=== PATIENT | male | born 1940 | race Caucasian/White ===

== ENCOUNTER → 2017-03-16 | Outpatient (CLI) | payer OTHER ==
[~2017-03-16] MED LIST: AMLO2.5T PO; ASPI81CH43; DOCU-94 PO; GABA300C8 PO; GLIP-110; HYDR-2035; LEVO500T3 PO; LISI10TA6; METFORMIN PO; SIMV-8; TRAM50TA2
== END | disposition home or self-care (01) ==
LOC: LAB 10:00
PROVIDERS: ATTEND Physician Assistant
DX: L82.1 Other seborrheic keratosis (principal)

== ENCOUNTER → 2017-07-31 | Outpatient (CLI) | payer OTHER ==
[~2017-07-31] MED LIST changes: +GABA-497 PO; -GABA300C8 PO; +LEVO500T21 PO; -LEVO500T3 PO
[2017-07-31 09:46] LABS: Urine Bilirubin Negative (Negative); Urine Blood 1+ /uL (Negative); Urine Color Yellow (Yellow); Urine Glucose Normal (Normal); Urine Ketone Negative (Negative); Urine Nitrite Negative (Negative); Urine RBC 1 /hpf (0 - 3); Urine Urobilinogen Normal (Negative)
[2017-07-31 09:53] LABS: Albumin 3.3 g/dL (3.4-5.0); BUN/Creatinine Ratio 18.6; Basophils # (auto) 0.1 uL; Basophils % (auto) 0.5 % (0.0-2.0); Bilirubin, Total 0.4 mg/dL (0.2-1.0); Calcium 8.7 mg/dL (8.5-10.1); Eosinophils # (auto) 0.2 uL; Eosinophils % (auto) 2.3 % (0.0-7.0); Hematocrit 42.3 % (41.0-53.0); Hemoglobin 14.2 g/dL (13.5-17.5); Lymphocytes # (auto) 1.5 uL; Mean Corpuscular Hemoglobin 31.5 pg (28.0-32.0); Mean Corpuscular Hgb Conc. 33.5 g/dL (32.0-36.0); Mean Platelet Volume 7.3 fL (6.9-10.8); Monocytes # (auto) 0.7 uL; Monocytes % (auto) 7.1 % (0.0-12.0); Neutrophils # (auto) 7.5 uL; Neutrophils % (auto) 75.1 % (37.0-80.0); Platelet Count (auto) 167 10^3/uL (140-450); Potassium 4.4 mmol/L (3.5-5.1); Red Cell Distribution Width 14.5 % (11.8-14.3); Total Protein 7.1 g/dL (6.4-8.2)
== END | disposition home or self-care (01) ==
LOC: LAB 08:31
PROVIDERS: ATTEND Family Medicine
DX: I10 Essential (primary) hypertension (principal); E11.9 Type 2 diabetes mellitus without complications
CPT/HCPCS: 36415; 80053; 80061; 81001; 82607; 83036; 84443; 85025

== ENCOUNTER 2018-01-04 10:31 | Inpatient (IN) | payer OTHER ==
[~2018-01-04] VITALS: Ht 172.7 cm; Wt 92.0 kg
[~2018-01-04 10:31] MED LIST changes: -GABA-497 PO; +GABA300C10 PO
[2018-01-04] MEDS ORDERED: SODIUM CHLORIDE 0.9% 500 ML IV ONE (10:49)
[2018-01-04 11:18] LABS: Basophils # (auto) 0.1 uL; Basophils % (auto) 0.4 % (0.0-2.0); Eosinophils # (auto) 0 uL; Eosinophils % (auto) 0.2 % (0.0-7.0); Hematocrit 42.2 % (41.0-53.0); Hemoglobin 13.8 g/dL (13.5-17.5); Lymphocytes # (auto) 1.7 uL; Lymphocytes % (auto) 10.6 % (10.0-50.0); Mean Corpuscular Hemoglobin 30.7 pg (28.0-32.0); Mean Corpuscular Hgb Conc. 32.6 g/dL (32.0-36.0); Mean Corpuscular Volume 94.2 fL (80.0-100.0); Monocytes # (auto) 0.8 uL; Monocytes % (auto) 5.2 % (0.0-12.0); Neutrophils # (auto) 13.6 uL; Neutrophils % (auto) 83.6 % (37.0-80.0); Platelet Count (auto) 158 10^3/uL (140-450); Red Blood Cells 4.48 10^6/uL (4.5-5.90); Red Cell Distribution Width 13.7 % (11.8-14.3); White Blood Cell 16.3 10^3/uL (4.4-10.8)
[2018-01-04 11:35] LABS: INR 0.97 (0.9-1.15); Partial Thromboplastin Time 29.3 sec (22.64-33.71); Prothrombin Time 10.6 sec (9.37-12.3)
[2018-01-04 11:36] LABS: Alanine Aminotransferase 12 U/L (16-61); Albumin 2.9 g/dL (3.4-5.0); Alkaline Phosphatase 86 U/L (45-117); Anion Gap 11 (5-15); Aspartate Aminotransferase 16 U/L (15-37); BUN/Creatinine Ratio 14.8; Bilirubin, Total 0.5 mg/dL (0.2-1.0); Blood Urea Nitrogen 18 mg/dL (7-18); Calcium 8.2 mg/dL (8.5-10.1); Carbon Dioxide 22 mmol/L (21-32); Chloride 102 mmol/L (98-107); GFR African American 74 mL/min; GFR Non-African American 61 mL/min; Glucose 191 mg/dL (74-106); Magnesium 2.5 mg/dL (1.6-2.6); Potassium 4.4 mmol/L (3.5-5.1); Sodium 135 mmol/L (136-145); Total Protein 6.8 g/dL (6.4-8.2)
[2018-01-04] MEDS ORDERED: IOHEXOL 350 MG/ML 100ML IJ ONE (12:16)
[2018-01-04] MEDS ORDERED: MORPHINE SULFATE 4 MG/ML SYR/VIAL IV PRN (14:00)
[2018-01-04] MEDS ORDERED: KETOROLAC TROMETH 30 MG/ML 1ML VIAL IV ONE (14:00)
[2018-01-04] MEDS ORDERED: cefTRIAXone 1GM/10ml IVPUSH 10 ML IV ONE (14:00)
[2018-01-04] MEDS ORDERED: DEXTROSE (50%) 50ML SYRG IV PRN (14:00)
[2018-01-04] MEDS ORDERED: HYDROcodone-ACET 7.5/325MG TAB PO PRN (14:00)
[2018-01-04] MEDS ORDERED: AZITHROMYCIN 500MG/ 250ML 250 ML IV ONE (14:00)
[2018-01-04] MEDS ORDERED: ONDANSETRON HCL 4 MG/2 ML VIAL IV PRN (14:00)
[2018-01-04] MEDS ORDERED: DOCUSATE SOD 100 MG CAP PO PRN (14:15)
[2018-01-04] MEDS ORDERED: ENOXAPARIN SOD 40 MG/0.4 ML SYRINGE SC SCH (14:30)
[2018-01-04 14:44] LABS: Cholesterol 136 mg/dL (< 200); HDL Cholesterol 45 mg/dL (40-59); LDL Cholesterol 85 mg/dL (< 100); Triglycerides 106 mg/dL (< 150)
[2018-01-04] MEDS: SODIUM CHLORIDE 0.9% 1,000 ML IV SCH (15:05)
[2018-01-04] MEDS: InsuLIN REG 1unit/0.01ml Soln (100units/ml) SC SCH ×2 (17:00→22:00)
[2018-01-04] MEDS: ACCU-CHEK COMFORT CURVE STRIP VI SCH ×2 (17:20→22:00)
[2018-01-04] MEDS: ALBUTEROL SULF 2.5 MG/0.5ML(0.5%) NEB SOLN NEB SCH (18:40)
[2018-01-04] MEDS: IPRATROPIUM BROM 0.5 MG/2.5ML INH SOL NEB SCH (18:41)
[2018-01-04 20:30] VITALS: BP 134/74
[2018-01-04 22:00] VITALS: BP 134/74
[2018-01-04] MEDS: ATORVASTATIN 20 MG TAB PO SCH (22:15)
[2018-01-04] MEDS: GABAPENTIN 300 MG CAP PO SCH (22:15)
[2018-01-05 04:02] VITALS: BP 134/74
[2018-01-05 04:57] VITALS: BP 150/79
[2018-01-05] MEDS: ALBUTEROL SULF 2.5 MG/0.5ML(0.5%) NEB SOLN NEB SCH ×4 (06:17→19:14)
[2018-01-05] MEDS: IPRATROPIUM BROM 0.5 MG/2.5ML INH SOL NEB SCH ×4 (06:17→19:15)
[2018-01-05] MEDS: InsuLIN REG 1unit/0.01ml Soln (100units/ml) SC SCH ×4 (07:00→21:54)
[2018-01-05] MEDS: ACCU-CHEK COMFORT CURVE STRIP VI SCH ×4 (07:18→21:54)
[2018-01-05] MEDS: SODIUM CHLORIDE 0.9% 1,000 ML IV SCH (07:21)
[2018-01-05 08:02] LABS: Potassium 3.9 mmol/L (3.5-5.1)
[2018-01-05 08:07] LABS: BUN/Creatinine Ratio 22.7; Calcium 8.3 mg/dL (8.5-10.1)
[2018-01-05 08:09] LABS: Basophils # (auto) 0 uL; Basophils % (auto) 0.4 % (0.0-2.0); Eosinophils # (auto) 0.1 uL; Eosinophils % (auto) 1.4 % (0.0-7.0); Hematocrit 39.4 % (41.0-53.0); Lymphocytes # (auto) 1.2 uL; Mean Corpuscular Hemoglobin 30.9 pg (28.0-32.0); Mean Corpuscular Hgb Conc. 33.1 g/dL (32.0-36.0); Mean Corpuscular Volume 93.3 fL (80.0-100.0); Monocytes # (auto) 0.7 uL; Monocytes % (auto) 8.4 % (0.0-12.0); Neutrophils % (auto) 74.8 % (37.0-80.0); Platelet Count (auto) 151 10^3/uL (140-450); Red Blood Cells 4.22 10^6/uL (4.5-5.90); Red Cell Distribution Width 13.8 % (11.8-14.3); White Blood Cell 8.1 10^3/uL (4.4-10.8)
[2018-01-05 09:00] VITALS: BP 135/73
[2018-01-05 09:37] LABS: Urine Bacteria FEW /hpf (None Seen); Urine Blood TRACE /uL (Negative); Urine Specific Gravity 1.009 (1.001-1.035); Urine WBC 11 /hpf (0 - 3)
[2018-01-05] MEDS: cefTRIAXone 1GM/10ml IVPUSH 10 ML IV SCH (09:38)
[2018-01-05] MEDS: ASPirin 81 mg TAB PO SCH (09:38)
[2018-01-05] MEDS: AZITHROMYCIN 500MG/ 250ML 250 ML IV SCH (09:38)
[2018-01-05] MEDS: GABAPENTIN 300 MG CAP PO SCH ×2 (09:39→21:53)
[2018-01-05 13:00] VITALS: BP 156/87
[2018-01-05 17:00] VITALS: BP 156/82
[2018-01-05] MEDS: ATORVASTATIN 20 MG TAB PO SCH (21:53)
[2018-01-05 22:00] VITALS: BP 154/84
[2018-01-05] MEDS ORDERED: CYAN1TAB14 PO (23:17)
[2018-01-05] MEDS ORDERED: HYDR-4683 PO (23:17)
[2018-01-05] MEDS ORDERED: LISI-275 PO (23:17)
[2018-01-05] MEDS ORDERED: ALBU1AER4 IN (23:17)
[2018-01-05] MEDS ORDERED: GLIP-115 PO (23:17)
[2018-01-05] MEDS ORDERED: FLUT100I IN (23:17)
[2018-01-05] MEDS ORDERED: ALPR0.5T7 PO (23:17)
[2018-01-05] MEDS ORDERED: AMLO5TAB2 PO (23:17)
[2018-01-05] MEDS ORDERED: CHOL100055 PO (23:17)
[2018-01-06] MEDS ORDERED: LISINOPRIL 5 MG TAB PO ONE (00:15)
[2018-01-06] MEDS ORDERED: amLODIPine BESYLATE 5 MG TAB PO ONE (00:15)
[2018-01-06 05:00] VITALS: BP 131/81
[2018-01-06] MEDS: ACCU-CHEK COMFORT CURVE STRIP VI SCH ×2 (06:29→11:47)
[2018-01-06] MEDS: InsuLIN REG 1unit/0.01ml Soln (100units/ml) SC SCH ×2 (06:29→11:47)
[2018-01-06] MEDS: IPRATROPIUM BROM 0.5 MG/2.5ML INH SOL NEB SCH ×2 (06:59→13:15)
[2018-01-06] MEDS: ALBUTEROL SULF 2.5 MG/0.5ML(0.5%) NEB SOLN NEB SCH ×2 (06:59→13:15)
[2018-01-06 09:32] VITALS: BP 115/83
[2018-01-06] MEDS ORDERED: LISINOPRIL 5 MG TAB PO SCH (10:00)
[2018-01-06] MEDS ORDERED: amLODIPine BESYLATE 5 MG TAB PO SCH (10:00)
[2018-01-06] MEDS: AZITHROMYCIN 500MG/ 250ML 250 ML IV SCH (10:13)
[2018-01-06] MEDS: GABAPENTIN 300 MG CAP PO SCH (10:13)
[2018-01-06] MEDS: ASPirin 81 mg TAB PO SCH (10:13)
[2018-01-06] MEDS: cefTRIAXone 1GM/10ml IVPUSH 10 ML IV SCH (10:13)
[2018-01-06 12:30] VITALS: BP 135/86
[2018-01-06 13:29] VITALS: BP 115/83
== END 2018-01-06 15:20 | disposition home health service (06) | DRG 871 ==
LOC: EDBD 10:31 → ER 10:31 → EDUNIT# 10:31 → OVERFLOW 10:32 → EAST 20:30
PROVIDERS: ADMIT Internal Medicine; ATTEND Internal Medicine
DX: A41.9 Sepsis, unspecified organism (principal); J18.9 Pneumonia, unspecified organism; J96.00 Acute respiratory failure, unspecified whether with hypoxia or hypercapnia; E44.0 Moderate protein-calorie malnutrition; E11.40 Type 2 diabetes mellitus with diabetic neuropathy, unspecified; E11.65 Type 2 diabetes mellitus with hyperglycemia; I11.9 Hypertensive heart disease without heart failure; R65.20 Severe sepsis without septic shock; E78.5 Hyperlipidemia, unspecified; I25.10 Atherosclerotic heart disease of native coronary artery without angina pectoris; Z96.651 Presence of right artificial knee joint; R55 Syncope and collapse; M54.5 Low back pain; J44.9 Chronic obstructive pulmonary disease, unspecified; Z96.643 Presence of artificial hip joint, bilateral; K59.00 Constipation, unspecified; M19.90 Unspecified osteoarthritis, unspecified site; M81.0 Age-related osteoporosis without current pathological fracture; Z79.891 Long term (current) use of opiate analgesic; Z79.899 Other long term (current) drug therapy; Z82.49 Family history of ischemic heart disease and other diseases of the circulatory system; Z82.5 Family history of asthma and other chronic lower respiratory diseases; Z86.73 Personal history of transient ischemic attack (TIA), and cerebral infarction without residual deficits; Z86.711 Personal history of pulmonary embolism; Z68.30 Body mass index [BMI] 30.0-30.9, adult; Z88.1 Allergy status to other antibiotic agents
CPT/HCPCS: 36415; 36600; 71045; 71046; 71275; 80048; 80053; 80061; 81001; 82805; 82962; 83036; 83605; 83735; 83880; 84484; 85025; 85379; 85610; 85730; 87040; 93005; 94640; 94761; 96361; 96365; 96372; 96375; 99291; J1815; J1885

== ENCOUNTER 2018-06-02 14:37 | Inpatient (IN) | payer OTHER ==
[~2018-06-02] VITALS: Ht 172.7 cm; Wt 89.5 kg
[~2018-06-02 14:37] MED LIST changes: +ALBU1AER4 IN; +ALPR0.5T7 PO; -AMLO2.5T PO; +AMLO5TAB2 PO; +CHOL100055 PO; +CYAN1TAB14 PO; +FLUT100I IN; -GLIP-110; +GLIP-115 PO; -HYDR-2035; +HYDR-4683 PO; +LISI-275 PO; -LISI10TA6; -TRAM50TA2
[2018-06-02 15:06] LABS: Basophils # (auto) 0 uL; Basophils % (auto) 0.5 % (0.0-2.0); Eosinophils # (auto) 0.1 uL; Eosinophils % (auto) 0.9 % (0.0-7.0); Hematocrit 39.1 % (41.0-53.0); Hemoglobin 13.3 g/dL (13.5-17.5); Lymphocytes # (auto) 1.6 uL; Lymphocytes % (auto) 19.2 % (10.0-50.0); Mean Corpuscular Hemoglobin 32.3 pg (28.0-32.0); Monocytes # (auto) 0.6 uL; Monocytes % (auto) 7.3 % (0.0-12.0); Neutrophils # (auto) 6.2 uL; Neutrophils % (auto) 72.1 % (37.0-80.0); Platelet Count (auto) 151 10^3/uL (140-450); Red Blood Cells 4.11 10^6/uL (4.5-5.90); Red Cell Distribution Width 14.2 % (11.8-14.3); White Blood Cell 8.5 10^3/uL (4.4-10.8)
[2018-06-02 15:32] LABS: Alanine Aminotransferase 17 U/L (16-61); Albumin 3.1 g/dL (3.4-5.0); Alkaline Phosphatase 81 U/L (45-117); Anion Gap 5 (5-15); Aspartate Aminotransferase 17 U/L (15-37); BUN/Creatinine Ratio 12.9; Bilirubin, Total 0.4 mg/dL (0.2-1.0); Blood Urea Nitrogen 12 mg/dL (7-18); Calcium 8.1 mg/dL (8.5-10.1); Carbon Dioxide 24 mmol/L (21-32); Chloride 104 mmol/L (98-107); GFR African American 101 mL/min; GFR Non-African American 83 mL/min; Glucose 72 mg/dL (74-106); Magnesium 2.3 mg/dL (1.6-2.6); Potassium 3.7 mmol/L (3.5-5.1); Sodium 133 mmol/L (136-145); Total Protein 6.8 g/dL (6.4-8.2)
[2018-06-02] MEDS ORDERED: SODIUM CHLORIDE 0.9% 1,000 ML IVB ONE (16:18)
[2018-06-02] MEDS ORDERED: cefTRIAXone 1GM/10ml IVPUSH 10 ML IV ONE (16:30)
[2018-06-02] MEDS ORDERED: IPRATROPIUM BROM 0.5 MG/2.5ML INH SOL HHN ONE (16:45)
[2018-06-02] MEDS ORDERED: methylPREDNISolone SOD SUCC 125 MG/2 ML VL IV ONE (16:45)
[2018-06-02] MEDS ORDERED: ALBUTEROL SULF 2.5 MG/0.5ML(0.5%) NEB SOLN HHN ONE (16:45)
[2018-06-02 17:03] LABS: Lactic Acid w/Reflex 2.1 mmol/L (0.4-2.0)
[2018-06-02 17:47] LABS: INR 0.93 (0.9-1.15); Partial Thromboplastin Time 29.4 sec (23.78-33.04)
[2018-06-02] MEDS ORDERED: SODIUM CHLORIDE 0.9% 1,000 ML IV SCH (18:41)
[2018-06-02] MEDS ORDERED: PROMETHAZINE HCL 25 MG/ML 1ML IV PRN (18:45)
[2018-06-02] MEDS ORDERED: ALBUTEROL SULF 2.5 MG/0.5ML(0.5%) NEB SOLN NEB PRN (18:45)
[2018-06-02] MEDS ORDERED: ACETAMINOPHEN 500 MG TAB PO PRN (18:45)
[2018-06-02] MEDS ORDERED: LORazepam 0.5 MG TAB PO PRN (18:45)
[2018-06-02] MEDS ORDERED: LACTULOSE 20Gm/30ML SOLN PO PRN (18:45)
[2018-06-02] MEDS ORDERED: DEXTROSE (50%) 50ML SYRG IV PRN (18:45)
[2018-06-02] MEDS ORDERED: TEMAZEPAM 15 MG CAP PO PRN (18:45)
[2018-06-02] MEDS ORDERED: MORPHINE SULF INJ 2 MG/ML SYRINGE 1ML IV PRN (18:45)
[2018-06-02] MEDS ORDERED: MORPHINE SULFATE 4 MG/ML SYR/VIAL IV PRN (18:45)
[2018-06-02] MEDS: ENOXAPARIN SOD 40 MG/0.4 ML SYRINGE SC SCH (18:59)
[2018-06-02] MEDS: DOXYCYCLINE 100MG/250ML 250 ML IV SCH (18:59)
[2018-06-02 19:00] LABS: Urine Bacteria FEW /hpf (None Seen); Urine Blood Negative /uL (Negative); Urine Specific Gravity 1.003 (1.001-1.035); Urine WBC 9 /hpf (0 - 3)
[2018-06-02] MEDS ORDERED: amLODIPine BESYLATE 5 MG TAB PO ONE (19:00)
[2018-06-02] MEDS ORDERED: PANTOPRAZOLE 40 MG TAB PO ONE (19:00)
[2018-06-02] MEDS ORDERED: ASPirin 81 mg TAB PO ONE (19:00)
[2018-06-02] MEDS ORDERED: POTASSIUM CHL 20 Meq TABLET PO SCH (19:05)
[2018-06-02] MEDS ORDERED: FUROSEMIDE 40 MG/4 ML VIAL IV SCH (19:05)
[2018-06-02] MEDS: ALPRAZolam 0.5 MG TAB PO SCH (19:15)
[2018-06-02] MEDS: DOCUSATE SOD 100 MG CAP PO SCH (19:33)
[2018-06-02] MEDS: glipiZIDE 5 MG TAB PO SCH (19:36)
[2018-06-02 20:30] VITALS: BP 130/76
[2018-06-02 21:11] VITALS: BP 130/76
[2018-06-02] MEDS: ACCU-CHEK COMFORT CURVE STRIP VI SCH (22:00)
[2018-06-03] MEDS ORDERED: methylPREDNISolone SOD SUCC 40 MG/ML VL IV SCH
[2018-06-03] MEDS: ATORVASTATIN 20 MG TAB PO SCH ×2 (00:26→22:31)
[2018-06-03] MEDS: GABAPENTIN 300 MG CAP PO SCH ×3 (00:26→22:31)
[2018-06-03] MEDS: CARVEDILOL 3.125 MG TAB PO SCH ×3 (00:29→22:31)
[2018-06-03] MEDS: HYDROcodone-ACET 5/325MG TAB PO PRN ×3 (00:41→22:32)
[2018-06-03] MEDS: InsuLIN REG 1unit/0.01ml Soln (100units/ml) SC SCH ×5 (00:43→22:00)
[2018-06-03 01:32] VITALS: BP 134/76
[2018-06-03] MEDS: BUDESONIDE (INHALATION) 0.5 MG/2 ML NEB NEB SCH ×3 (01:50→18:19)
[2018-06-03] MEDS: IPRATROPIUM BROM 0.5 MG/2.5ML INH SOL NEB SCH ×4 (01:50→18:19)
[2018-06-03] MEDS: ALBUTEROL SULF 2.5 MG/0.5ML(0.5%) NEB SOLN NEB SCH ×4 (01:50→18:20)
[2018-06-03 05:11] VITALS: BP 108/68
[2018-06-03] MEDS: ACCU-CHEK COMFORT CURVE STRIP VI SCH ×4 (07:00→22:00)
[2018-06-03 07:21] LABS: Basophils # (auto) 0 uL; Basophils % (auto) 0.1 % (0.0-2.0); Eosinophils # (auto) 0 uL; Hematocrit 40.7 % (41.0-53.0); Hemoglobin 13.5 g/dL (13.5-17.5); Lymphocytes # (auto) 0.8 uL; Lymphocytes % (auto) 16.9 % (10.0-50.0); Mean Corpuscular Hemoglobin 31.5 pg (28.0-32.0); Mean Corpuscular Hgb Conc. 33.3 g/dL (32.0-36.0); Mean Corpuscular Volume 94.7 fL (80.0-100.0); Monocytes # (auto) 0.2 uL; Monocytes % (auto) 4.4 % (0.0-12.0); Neutrophils # (auto) 3.8 uL; Neutrophils % (auto) 78.6 % (37.0-80.0); Platelet Count (auto) 152 10^3/uL (140-450); Red Cell Distribution Width 14.6 % (11.8-14.3); White Blood Cell 4.8 10^3/uL (4.4-10.8)
[2018-06-03 08:45] VITALS: BP 146/80
[2018-06-03] MEDS: glipiZIDE 5 MG TAB PO SCH ×2 (09:00→17:41)
[2018-06-03] MEDS: ASPirin 81 mg TAB PO SCH (09:37)
[2018-06-03] MEDS: DOXYCYCLINE 100MG/250ML 250 ML IV SCH ×2 (09:37→22:30)
[2018-06-03] MEDS: DOCUSATE SOD 100 MG CAP PO SCH (09:38)
[2018-06-03] MEDS: amLODIPine BESYLATE 5 MG TAB PO SCH (09:40)
[2018-06-03] MEDS: PANTOPRAZOLE 40 MG TAB PO SCH (09:40)
[2018-06-03] MEDS: ALPRAZolam 0.5 MG TAB PO SCH (09:41)
[2018-06-03] MEDS: CHOLECALCIFEROL (VITD3) 1,000 UNIT TAB PO SCH (09:41)
[2018-06-03] MEDS: LISINOPRIL 5 MG TAB PO SCH (09:42)
[2018-06-03] MEDS: ENOXAPARIN SOD 40 MG/0.4 ML SYRINGE SC SCH (09:43)
[2018-06-03 12:00] VITALS: BP 138/85
[2018-06-03] MEDS ORDERED: ALBUTEROL SULF 2.5 MG/0.5ML(0.5%) NEB SOLN NEB PRN (12:30)
[2018-06-03] MEDS ORDERED: IPRATROPIUM BROM 0.5 MG/2.5ML INH SOL NEB PRN (12:30)
[2018-06-03 16:33] VITALS: BP 144/78
[2018-06-03 21:24] VITALS: BP 147/81
[2018-06-04] MEDS: ALBUTEROL SULF 2.5 MG/0.5ML(0.5%) NEB SOLN NEB SCH ×3 (00:28→12:00)
[2018-06-04] MEDS: IPRATROPIUM BROM 0.5 MG/2.5ML INH SOL NEB SCH ×3 (00:29→12:00)
[2018-06-04 05:02] VITALS: BP 138/76
[2018-06-04] MEDS: BUDESONIDE (INHALATION) 0.5 MG/2 ML NEB NEB SCH (06:27)
[2018-06-04 06:38] LABS: Basophils # (auto) 0 uL; Basophils % (auto) 0.4 % (0.0-2.0); Eosinophils # (auto) 0.1 uL; Eosinophils % (auto) 1.1 % (0.0-7.0); Hematocrit 40.1 % (41.0-53.0); Hemoglobin 13.9 g/dL (13.5-17.5); Lymphocytes # (auto) 1.6 uL; Lymphocytes % (auto) 22.5 % (10.0-50.0); Mean Corpuscular Hgb Conc. 34.6 g/dL (32.0-36.0); Mean Corpuscular Volume 95.3 fL (80.0-100.0); Monocytes # (auto) 0.7 uL; Monocytes % (auto) 9.2 % (0.0-12.0); Neutrophils # (auto) 4.8 uL; Neutrophils % (auto) 66.8 % (37.0-80.0); Platelet Count (auto) 146 10^3/uL (140-450); Red Blood Cells 4.21 10^6/uL (4.5-5.90); Red Cell Distribution Width 14.5 % (11.8-14.3); White Blood Cell 7.1 10^3/uL (4.4-10.8)
[2018-06-04 06:44] LABS: BUN/Creatinine Ratio 17.1; Calcium 8.6 mg/dL (8.5-10.1); Magnesium 2.6 mg/dL (1.6-2.6); Potassium 3.9 mmol/L (3.5-5.1)
[2018-06-04] MEDS: ACCU-CHEK COMFORT CURVE STRIP VI SCH ×2 (06:59→11:30)
[2018-06-04] MEDS: InsuLIN REG 1unit/0.01ml Soln (100units/ml) SC SCH ×2 (06:59→11:30)
[2018-06-04] MEDS: glipiZIDE 5 MG TAB PO SCH (08:13)
[2018-06-04 08:30] VITALS: BP 137/83
[2018-06-04] MEDS ORDERED: DOXY-216 PO (09:44)
[2018-06-04] MEDS ORDERED: SACC250C PO (09:44)
[2018-06-04] MEDS: ENOXAPARIN SOD 40 MG/0.4 ML SYRINGE SC SCH (09:48)
[2018-06-04] MEDS: DOXYCYCLINE 100MG/250ML 250 ML IV SCH (09:48)
[2018-06-04] MEDS: PANTOPRAZOLE 40 MG TAB PO SCH (10:40)
[2018-06-04] MEDS: LISINOPRIL 5 MG TAB PO SCH (10:41)
[2018-06-04] MEDS: CHOLECALCIFEROL (VITD3) 1,000 UNIT TAB PO SCH (10:41)
[2018-06-04] MEDS: amLODIPine BESYLATE 5 MG TAB PO SCH (10:42)
[2018-06-04] MEDS: ALPRAZolam 0.5 MG TAB PO SCH (10:42)
[2018-06-04] MEDS: GABAPENTIN 300 MG CAP PO SCH (10:42)
[2018-06-04] MEDS: DOCUSATE SOD 100 MG CAP PO SCH (10:42)
[2018-06-04] MEDS: ASPirin 81 mg TAB PO SCH (10:43)
[2018-06-04 10:44] VITALS: BP 140/82
[2018-06-04] MEDS: CARVEDILOL 3.125 MG TAB PO SCH (10:44)
[2018-06-04] MEDS: HYDROcodone-ACET 5/325MG TAB PO PRN (10:48)
[2018-06-04 10:56] VITALS: BP 137/83
[2018-06-04 12:30] VITALS: BP 142/77
[2018-06-05] MEDS ORDERED: CYANOCOBALAMIN 500 MCG TAB PO SCH (12:00)
== END 2018-06-04 12:15 | disposition home or self-care (01) | DRG 190 ==
LOC: EDBD 14:37 → ER 14:37 → TELE 14:38 → TELE-EAST 20:30
PROVIDERS: ADMIT Internal Medicine; ATTEND Internal Medicine
DX: J44.0 Chronic obstructive pulmonary disease with (acute) lower respiratory infection (principal); J18.9 Pneumonia, unspecified organism; J44.1 Chronic obstructive pulmonary disease with (acute) exacerbation; E66.9 Obesity, unspecified; E78.5 Hyperlipidemia, unspecified; Z96.643 Presence of artificial hip joint, bilateral; E11.42 Type 2 diabetes mellitus with diabetic polyneuropathy; G89.29 Other chronic pain; M19.90 Unspecified osteoarthritis, unspecified site; M54.5 Low back pain; I11.0 Hypertensive heart disease with heart failure; I50.9 Heart failure, unspecified; Z96.651 Presence of right artificial knee joint; Z88.8 Allergy status to other drugs, medicaments and biological substances; Z82.49 Family history of ischemic heart disease and other diseases of the circulatory system; Z82.5 Family history of asthma and other chronic lower respiratory diseases; Z86.711 Personal history of pulmonary embolism; Z87.891 Personal history of nicotine dependence; R06.03 Acute respiratory distress
CPT/HCPCS: 36415; 71045; 80048; 80053; 81001; 82550; 82962; 83036; 83605; 83735; 83880; 84443; 84484; 85025; 85610; 85730; 87040; 93005; 93306; 94640; 96361; 96365; 96372; 96375; 97116; J0696; J1815; J3490

== ENCOUNTER → 2018-09-08 | Outpatient (CLI) | payer OTHER ==
[~2018-09-08] MED LIST changes: +AMLO5TAB13 PO; -AMLO5TAB2 PO; +DOXY-216 PO; +SACC250C PO
[2018-09-08 08:34] LABS: Basophils # (auto) 0 uL; Basophils % (auto) 0.6 % (0.0-2.0); Eosinophils # (auto) 0.2 uL; Eosinophils % (auto) 2.7 % (0.0-7.0); Hematocrit 43.1 % (41.0-53.0); Hemoglobin 14.2 g/dL (13.5-17.5); Lymphocytes # (auto) 1.3 uL; Lymphocytes % (auto) 16.4 % (10.0-50.0); Mean Corpuscular Hemoglobin 31.3 pg (28.0-32.0); Mean Corpuscular Volume 94.8 fL (80.0-100.0); Monocytes # (auto) 0.6 uL; Monocytes % (auto) 8.2 % (0.0-12.0); Neutrophils # (auto) 5.6 uL; Neutrophils % (auto) 72.1 % (37.0-80.0); Platelet Count (auto) 167 10^3/uL (140-450); Red Blood Cells 4.55 10^6/uL (4.5-5.90); White Blood Cell 7.7 10^3/uL (4.4-10.8)
[2018-09-08 08:37] LABS: Urine Bacteria NONE SEEN /hpf (None Seen); Urine Blood TRACE /uL (Negative); Urine Specific Gravity 1.011 (1.001-1.035); Urine WBC 5 /hpf (0 - 3)
[2018-09-08 13:28] LABS: Potassium 4.8 mmol/L (3.5-5.1)
[2018-09-08 13:40] LABS: Albumin 3.4 g/dL (3.4-5.0); BUN/Creatinine Ratio 17.6; Bilirubin, Total 0.3 mg/dL (0.2-1.0); Total Protein 7.7 g/dL (6.4-8.2)
== END | disposition home or self-care (01) ==
LOC: LAB 07:45
PROVIDERS: ATTEND Family Medicine
DX: E11.9 Type 2 diabetes mellitus without complications (principal); I10 Essential (primary) hypertension; F41.9 Anxiety disorder, unspecified; E78.49 Other hyperlipidemia
CPT/HCPCS: 36415; 80053; 80061; 81001; 82043; 82306; 82607; 83036; 83615; 84443; 85025

== ENCOUNTER 2018-10-12 06:08 | Day surgery (SDC) | payer OTHER ==
[2018-10-07 14:16] LABS: Basophils # (auto) 0.1 uL; Basophils % (auto) 0.6 % (0.0-2.0); Eosinophils # (auto) 0.2 uL; Eosinophils % (auto) 2.1 % (0.0-7.0); Hematocrit 46.7 % (41.0-53.0); Hemoglobin 15.3 g/dL (13.5-17.5); Lymphocytes # (auto) 3.1 uL; Lymphocytes % (auto) 39.5 % (10.0-50.0); Mean Corpuscular Hemoglobin 30.7 pg (28.0-32.0); Mean Corpuscular Hgb Conc. 32.9 g/dL (32.0-36.0); Mean Corpuscular Volume 93.4 fL (80.0-100.0); Monocytes # (auto) 0.7 uL; Neutrophils # (auto) 3.9 uL; Neutrophils % (auto) 48.8 % (37.0-80.0); Nucleated Red Blood Cells % 0.1 %; Platelet Count (auto) 153 10^3/uL (140-450); Red Cell Distribution Width 13.4 % (11.8-14.3); White Blood Cell 7.9 10^3/uL (4.4-10.8)
[2018-10-07 14:19] LABS: Urine Bacteria NONE SEEN /hpf (None Seen); Urine Blood Negative /uL (Negative); Urine Specific Gravity 1.004 (1.001-1.035); Urine WBC <1 /hpf (0 - 3)
[2018-10-07 14:32] LABS: INR 0.9 (0.9-1.15); Partial Thromboplastin Time 29.5 sec (23.78-33.04); Prothrombin Time 9.7 sec (9.27-12.13)
[2018-10-07 15:03] LABS: Albumin 3.6 g/dL (3.4-5.0); Calcium 8.9 mg/dL (8.5-10.1); Potassium 4.3 mmol/L (3.5-5.1)
[2018-10-07 15:05] LABS: BUN/Creatinine Ratio 13.8
[2018-10-07 15:08] LABS: Bilirubin, Total 0.5 mg/dL (0.2-1.0); Total Protein 7.9 g/dL (6.4-8.2)
[~2018-10-12] VITALS: Ht 172.7 cm; Wt 88.9 kg
[~2018-10-12 06:08] MED LIST changes: -DOXY-216 PO; -GLIP-115 PO; -LEVO500T21 PO; +METF-370 PO; -METFORMIN PO; -SACC250C PO
[2018-10-12] MEDS ORDERED: CLINDAMYCIN 600MG IV 50 ML IV ONE (06:40)
[2018-10-12] MEDS ORDERED: LIDOCAINE 1% INJ PF 5ML AMP ONE (07:32)
[2018-10-12] MEDS ORDERED: LIDOCAINE W/ EPINEPHRINE 2% INJ 20ML VIAL ONE (07:33)
[2018-10-12] MEDS ORDERED: SUCCINYLCHOLINE CHLORIDE 20 MG/ML 10ML VIAL IV ONE (07:33)
[2018-10-12] MEDS ORDERED: ROPIVACAINE 0.5% (5MG/ML) 20ML AMPULE IJ ONE (07:33)
[2018-10-12] MEDS ORDERED: ROCURONIUM 10MG/ML 10ML VIAL IV ONE (07:35)
[2018-10-12] MEDS ORDERED: MIDAZOLAM HCL 1MG/1ML-2 ML VIAL ONE (07:35)
[2018-10-12] MEDS ORDERED: ETOMIDATE (2MG/ML) 20ML VIAL IV ONE (07:37)
[2018-10-12] MEDS ORDERED: STERILE WATER 10 ML ONE (08:27)
[2018-10-12] MEDS ORDERED: ePHEDrine SULFATE 50 MG/ML AMP ONE (08:27)
[2018-10-12] MEDS ORDERED: ACCU-CHEK COMFORT CURVE STRIP VI ONE (08:30)
[2018-10-12] MEDS ORDERED: ONDANSETRON HCL 4 MG/2 ML VIAL IV ONE (08:30)
[2018-10-12] MEDS ORDERED: HYDROmorphone HCL 2 MG/ML VL IV PRN ×2 (08:30)
[2018-10-12] MEDS ORDERED: NALOXONE HCL 0.4 MG/ML VIAL IV PRN (08:30)
[2018-10-12] MEDS ORDERED: fentaNYL CITRATE 100 MCG/2 ML VL ONE (08:38)
[2018-10-12 11:00] VITALS: BP 144/83
== END 2018-10-12 11:22 | disposition home or self-care (01) ==
LOC: SUR 06:08
PROVIDERS: ATTEND Orthopaedic Surgery
DX: S46.011A Strain of muscle(s) and tendon(s) of the rotator cuff of right shoulder, initial encounter (principal); M13.811 Other specified arthritis, right shoulder; S43.401A Unspecified sprain of right shoulder joint, initial encounter; M94.211 Chondromalacia, right shoulder; J43.9 Emphysema, unspecified; J45.909 Unspecified asthma, uncomplicated; G47.30 Sleep apnea, unspecified; E11.9 Type 2 diabetes mellitus without complications; I25.10 Atherosclerotic heart disease of native coronary artery without angina pectoris; I10 Essential (primary) hypertension; G47.33 Obstructive sleep apnea (adult) (pediatric); K21.9 Gastro-esophageal reflux disease without esophagitis; Z88.8 Allergy status to other drugs, medicaments and biological substances; Z87.891 Personal history of nicotine dependence; Z96.651 Presence of right artificial knee joint; Z96.649 Presence of unspecified artificial hip joint; Z82.49 Family history of ischemic heart disease and other diseases of the circulatory system; Z82.5 Family history of asthma and other chronic lower respiratory diseases; X58.XXXA Exposure to other specified factors, initial encounter; Y93.9 Activity, unspecified; Y92.9 Unspecified place or not applicable; Y99.9 Unspecified external cause status
CPT/HCPCS: 23076; 23150; 23412; 29821; 29822; 36415; 80053; 81001; 82962; 85025; 85610; 85730; 88305; J0330; J2250; J2795; J3010; J3490; A4565

== ENCOUNTER → 2019-08-31 | Outpatient (CLI) | payer OTHER ==
[~2019-08-31] MED LIST changes: -AMLO5TAB13 PO; +AMLO5TAB15 PO; -HYDR-4683 PO; +HYDR-4833 PO
[2019-08-31 08:49] LABS: Urine WBC None Seen /hpf (0 - 3)
[2019-08-31 09:04] LABS: Basophils # (auto) 0.1 uL; Basophils % (auto) 0.9 % (0.0-2.0); Eosinophils # (auto) 0.2 uL; Eosinophils % (auto) 2.4 % (0.0-7.0); Hematocrit 44.4 % (41.0-53.0); Hemoglobin 14.7 g/dL (13.5-17.5); Lymphocytes # (auto) 1.9 uL; Lymphocytes % (auto) 23.8 % (10.0-50.0); Mean Corpuscular Hemoglobin 30.4 pg (28.0-32.0); Mean Corpuscular Hgb Conc. 33.2 g/dL (32.0-36.0); Mean Corpuscular Volume 91.8 fL (80.0-100.0); Monocytes # (auto) 0.6 uL; Monocytes % (auto) 7.6 % (0.0-12.0); Neutrophils # (auto) 5.2 uL; Neutrophils % (auto) 65.3 % (37.0-80.0); Nucleated Red Blood Cells % 0.1 %; Platelet Count (auto) 240 10^3/uL (140-450); Red Blood Cells 4.83 10^6/uL (4.5-5.90); Red Cell Distribution Width 14.3 % (11.8-14.3)
[2019-08-31 09:21] LABS: Urine Bacteria NONE SEEN /hpf (None Seen); Urine Blood TRACE /uL (Negative); Urine Specific Gravity 1.008 (1.001-1.035)
[2019-08-31 09:30] LABS: Albumin 3.5 g/dL (3.4-5.0); Potassium 4.5 mmol/L (3.5-5.1)
[2019-08-31 09:38] LABS: BUN/Creatinine Ratio 18.6; Bilirubin, Total 0.4 mg/dL (0.2-1.0); Calcium 9.3 mg/dL (8.5-10.1)
== END | disposition home or self-care (01) ==
LOC: LAB 07:59
PROVIDERS: ATTEND Family Medicine
DX: J44.9 Chronic obstructive pulmonary disease, unspecified (principal); I26.99 Other pulmonary embolism without acute cor pulmonale; J18.9 Pneumonia, unspecified organism; Z90.79 Acquired absence of other genital organ(s); Z87.891 Personal history of nicotine dependence; Z88.8 Allergy status to other drugs, medicaments and biological substances
CPT/HCPCS: 36415; 80053; 80061; 81001; 82043; 82306; 82607; 83036; 85025

== ENCOUNTER → 2019-09-19 | Outpatient (CLI) | payer OTHER ==
[2019-09-19 08:21] LABS: Calcium 8.8 mg/dL (8.5-10.1); Potassium 4.7 mmol/L (3.5-5.1)
== END | disposition home or self-care (01) ==
LOC: LAB 07:36
PROVIDERS: ATTEND Family Medicine
DX: Z01.812 Encounter for preprocedural laboratory examination (principal); R93.89 Abnormal findings on diagnostic imaging of other specified body structures; R91.8 Other nonspecific abnormal finding of lung field
CPT/HCPCS: 36415; 80048

== ENCOUNTER 2019-09-28 18:04 | Inpatient (IN) | payer OTHER ==
[~2019-09-28] VITALS: Ht 172.7 cm; Wt 85.8 kg
[2019-09-28 19:05] LABS: Basophils # (auto) 0 uL; Basophils % (auto) 0.5 % (0.0-2.0); Eosinophils # (auto) 0.1 uL; Eosinophils % (auto) 1.4 % (0.0-7.0); Hematocrit 41.3 % (41.0-53.0); Hemoglobin 13.9 g/dL (13.5-17.5); Lymphocytes # (auto) 1.2 uL; Lymphocytes % (auto) 14.4 % (10.0-50.0); Mean Corpuscular Hemoglobin 31.2 pg (28.0-32.0); Mean Corpuscular Hgb Conc. 33.7 g/dL (32.0-36.0); Mean Corpuscular Volume 92.6 fL (80.0-100.0); Monocytes # (auto) 0.7 uL; Monocytes % (auto) 8.3 % (0.0-12.0); Neutrophils # (auto) 6.3 uL; Neutrophils % (auto) 75.4 % (37.0-80.0); Platelet Count (auto) 184 10^3/uL (140-450); Red Blood Cells 4.46 10^6/uL (4.5-5.90); Red Cell Distribution Width 14.6 % (11.8-14.3); White Blood Cell 8.3 10^3/uL (4.4-10.8)
[2019-09-28 19:19] LABS: Alanine Aminotransferase 15 U/L (16-61); Albumin 3.5 g/dL (3.4-5.0); Anion Gap 8 (5-15); Aspartate Aminotransferase 16 U/L (15-37); BUN/Creatinine Ratio 14.6; Blood Urea Nitrogen 13 mg/dL (7-18); Calcium 8.4 mg/dL (8.5-10.1); Carbon Dioxide 24 mmol/L (21-32); Chloride 107 mmol/L (98-107); GFR African American 106 mL/min; GFR Non-African American 87 mL/min; Glucose 131 mg/dL (74-106); Potassium 3.9 mmol/L (3.5-5.1); Sodium 139 mmol/L (136-145)
[2019-09-28 19:24] LABS: Alkaline Phosphatase 87 U/L (45-117); Bilirubin, Total 0.3 mg/dL (0.2-1.0); Total Protein 7.2 g/dL (6.4-8.2)
[2019-09-28 20:54] LABS: INR 0.97 (0.9-1.15)
[2019-09-28] MEDS ORDERED: ALBUTEROL SULF 2.5 MG/0.5ML(0.5%) NEB SOLN NEB PRN (21:00)
[2019-09-28] MEDS ORDERED: TEMAZEPAM 15 MG CAP PO PRN (21:00)
[2019-09-28] MEDS ORDERED: NITROGLYCERIN 0.4 MG SL TAB SL PRN (21:00)
[2019-09-28] MEDS ORDERED: ONDANSETRON HCL 4 MG/2 ML VIAL IV PRN (21:00)
[2019-09-28] MEDS ORDERED: MORPHINE SULF INJ 2 MG/ML SYRINGE 1ML IV PRN (21:00)
[2019-09-28] MEDS ORDERED: DOCUSATE SOD 100 MG CAP PO PRN (21:00)
[2019-09-28] MEDS ORDERED: ACETAMINOPHEN 325 MG TAB PO PRN (21:00)
[2019-09-28] MEDS ORDERED: DEXTROSE (50%) 50ML SYRG IV PRN (21:00)
[2019-09-28 21:23] VITALS: BP 149/73
--- NOTE | 2019-09-28 22:30 | NUR ---
Telemetry admit from ER SRUTHI LERNER admitted to Telemetry unit after SBAR received. Patient oriented to Porsha Stafford, primary RN, unit, room, bed, and unit policies regarding patient care and visiting hours. Patient now on continuous telemetry monitoring, tele box # [id number] and telemetry reading on arrival to unit is . Patient placed on bedside oxygen, weighed by bedscale and encouraged to call if they need something. All questions and concerns addressed, patient verbalized understanding. DAUGHTER AT BEDSIDE ASSISTED WITH PATIENT ADMISSION. DAUGHTER STATED SHE WILL CALL BACK WITH PATIENT'S CURRENT HOME MEDICATIONS. PATIENT DENIES CHEST PAIN AT THIS TIME. WILL CONTINUE TO MONITOR Q1H AND PRN.
[2019-09-28] MEDS: InsuLIN REG 1unit/0.01ml Soln (100units/ml) SC SCH (23:35)
--- NOTE | 2019-09-28 23:35 | NUR ---
PHOTO TO LEFT FOREARM SKIN TEAR TAKEN.
--- NOTE | 2019-09-28 23:35 | NUR ---
SKIN TEAR TO SCAB ON LEFT FOREARM. PATIENT STATES THAT HE HAS BEEN DIAGNOSED WITH SKIN CANCER AND THAT HE HAS BEEN SCHEDULED TO HAVE IT REMOVED.
[2019-09-28] MEDS: GABAPENTIN 300 MG CAP PO SCH (23:52)
[2019-09-28] MEDS: ATORVASTATIN 20 MG TAB PO SCH (23:52)
[2019-09-28] MEDS: FAMOTIDINE 20 MG TAB PO SCH (23:53)
[2019-09-28] MEDS: ACCU-CHEK COMFORT CURVE STRIP VI SCH (23:53)
[2019-09-28] MEDS: amLODIPine BESYLATE 5 MG TAB PO SCH (23:53)
--- NOTE | 2019-09-29 | NUR ---
PATIENT NPO PER PATIENT REQUEST PATIENT STATES THAT HE IS SCHEDULED FOR A LUNG BIOPSY TODAY 09/29/2019 AND WOULD LIKE TO BE NPO INSTRUCTED FOR PROCEDURE.
--- NOTE | 2019-09-29 00:30 | NUR ---
MEDICATION RECONCILIATION DAUGHTER YURIY QURESHI [phone] CALLED WITH CURRENT MEDICATIONS.
[2019-09-29 01:35] VITALS: BP 145/89
[2019-09-29 05:15] VITALS: BP 122/81
[2019-09-29] MEDS: InsuLIN REG 1unit/0.01ml Soln (100units/ml) SC SCH ×4 (06:00→23:56)
--- NOTE | 2019-09-29 06:00 | NUR ---
ROUNDS PATIENT COMFORTABLE IN BED, NO S/SX OF DISTRESS, SOB OR PAIN.
[2019-09-29 06:27] LABS: Basophils # (auto) 0 uL; Basophils % (auto) 0.7 % (0.0-2.0); Eosinophils # (auto) 0.1 uL; Eosinophils % (auto) 1.6 % (0.0-7.0); Hematocrit 38.8 % (41.0-53.0); Hemoglobin 13.1 g/dL (13.5-17.5); Lymphocytes # (auto) 1.7 uL; Lymphocytes % (auto) 25.9 % (10.0-50.0); Mean Corpuscular Hemoglobin 31.2 pg (28.0-32.0); Mean Corpuscular Hgb Conc. 33.8 g/dL (32.0-36.0); Mean Corpuscular Volume 92.4 fL (80.0-100.0); Monocytes # (auto) 0.6 uL; Monocytes % (auto) 9.3 % (0.0-12.0); Neutrophils # (auto) 4.1 uL; Neutrophils % (auto) 62.5 % (37.0-80.0); Nucleated Red Blood Cells % 0.1 %; Platelet Count (auto) 176 10^3/uL (140-450); Red Cell Distribution Width 14.3 % (11.8-14.3); White Blood Cell 6.5 10^3/uL (4.4-10.8)
[2019-09-29] MEDS: ACCU-CHEK COMFORT CURVE STRIP VI SCH ×4 (06:36→23:56)
[2019-09-29 06:45] LABS: Calcium 8.2 mg/dL (8.5-10.1); Potassium 3.7 mmol/L (3.5-5.1)
[2019-09-29 06:49] LABS: BUN/Creatinine Ratio 15.1
--- NOTE | 2019-09-29 07:12 | NUR ---
ENDORSED PATIENT CARE TO DAY SHIFT NURSE TERESA APPIAH. PATIENT IS COMFORTABLE IN BED. TERESA APPIAH IS AWARE THAT PATIENT IS NPO FOR LUNG BIOPSY THAT HE IS EXPECTING TO HAVE DONE TODAY.
--- NOTE | 2019-09-29 07:25 | NUR ---
Opening Shift Note Assumed care of patient, awake and alert x4. No S/S of distress/SOB on RA. No pain noted or reported. Updated on POC and instructed to call for assistance as needed, patient verbalized understanding. Bed locked in lowest position, side rails up x2, call light within reach. Will continue to monitor q1hr and PRN for changes.
[2019-09-29 08:00] VITALS: BP 121/72
[2019-09-29] MEDS ORDERED: fentaNYL CITRATE 100 MCG/2 ML VL IV ONE (08:15)
[2019-09-29] MEDS ORDERED: MIDAZOLAM HCL 1MG/1ML-2 ML VIAL IV ONE (08:15)
[2019-09-29] MEDS ORDERED: LIDOCAINE 2%HCL (LOCAL ANESTH.) INJ 20ML MDV ONE ×2 (08:18→14:37)
[2019-09-29] MEDS: LISINOPRIL 5 MG TAB PO SCH (09:48)
[2019-09-29] MEDS: FAMOTIDINE 20 MG TAB PO SCH ×2 (09:48→22:14)
[2019-09-29] MEDS: GABAPENTIN 300 MG CAP PO SCH ×2 (09:49→22:15)
[2019-09-29] MEDS: ENOXAPARIN SOD 40 MG/0.4 ML SYRINGE SC SCH (09:56)
[2019-09-29] MEDS: ASPirin 81 mg TAB PO SCH (09:56)
--- NOTE | 2019-09-29 10:35 | NUR ---
WOUND CARE NOTE: PATIENT NOTED TO HAVE A SKIN INTEGRITY ISSUE UPON ADMIT. WOUND PHOTO TAKEN AT THAT TIME FOR REFERENCE, WOUND CONSULT ORDERED. PATIENT ADMITTED TO [facility] WITH DIAGNOSIS OF CHEST PAIN. CURRENT RICKY SCORE IS 22. PATIENT STATES THAT HE HAS A "SKIN CANCER" AND IS SCHEDULED TO HAVE IT REMOVED BY A SPECIALIST OUT PATIENT. PATIENT HAS A 1 X 1 RAISED GROWTH/LESION TO THE LEFT FOREARM. NO OPEN OR DRAINING AREAS NOTED. LESION PERIODICALLY BLEEDS. NO BLEEDING NOTED AT THIS TIME. RECOMMEND: PRN DRESSING CONSISTING OF OPTIFOAM GENTLE DRESSING, FOLLOW UP WITH PATIENT'S SOUS CHEF OUT PATIENT FOR FURTHER DIAGNOSIS/TREATMENT. NO FURTHER WOUND CARE MONITORING NEEDED AT THIS TIME. Addendum: 09/29/19 at 1416 by Delia Duncan RN Amended: Links added.
[2019-09-29] MEDS ORDERED: ADENOSINE 70 MG in GIVE UN-DILUTED 0 ML IV STA (11:41)
[2019-09-29 12:00] VITALS: BP 123/83
--- NOTE | 2019-09-29 12:45 | NUR ---
Returned from lunch Covering RN Summer, received phone call from radiology that patient has moderate to large pneumothorax and to place patient on O2 and that a chest x-ray will be repeated in 1 hour. Patient was placed on 4L O2 via NC. Primary RN notified Dr. Hernandez and made him aware of patients condition change, new orders received, for surgical consult with Dr. Santos and to cancel CT until further notice. Will input and follow through with orders.
--- NOTE | 2019-09-29 12:50 | NUR ---
Paged Dr Santos Surgical consult placed for possible pneumothorax.
[2019-09-29] MEDS ORDERED: MORPHINE SULF INJ 2 MG/ML SYRINGE 1ML IV PRN (13:00)
--- NOTE | 2019-09-29 13:20 | NUR ---
Spoke with Dr. Santos Need to contact Dr. Ball in radiology for chest tube. Notified Dr. Hernandez, he was already aware and has spoke with Dr. Ball.
--- NOTE | 2019-09-29 14:30 | NUR ---
Patient taken to Radiology for procedure Patient transported via hospital bed connected to portable oxygen at 4L via NC. No distress noted upon departure. Daughter at bedside.
--- NOTE | 2019-09-29 14:45 | NUR ---
PT IN CT FOR INSERTION OF LEFT CHEST TUBE BY DR KATZ. VS 164/[id number]%..
--- NOTE | 2019-09-29 15:00 | NUR ---
164/[id number]%. finished with chest tube insertion. pneumo partly resolved. pt tolerated well. chest tube left to water seal. Pt taken to ultrasound for a leg scan. Report called to Aileen APPIAH
--- NOTE | 2019-09-29 15:55 | NUR ---
Patient is back from Radiology Water seal chest tube is inserted to left chest, no suction needed. No s/s of distress or SOB at this time/
--- NOTE | 2019-09-29 16:21 | NUR ---
Spoke with Dr. Hernandez Patient is cleared for cardiac/[facility] diet at this time.
[2019-09-29 17:00] VITALS: BP 156/90
--- NOTE | 2019-09-29 19:01 | NUR ---
Patient Rounds Patient appears to be sleeping, resting with eyes closed. No s/s of distress. Will endorse care to jet dyeing machine operator RN.
--- NOTE | 2019-09-29 19:35 | NUR ---
Opening Shift Note Assumed care of patient, awake and alert oriented x4. No S/S of distress/SOB noted, chest tube connected to water seal on left side, no suction. Bed is in lowest locked position with bed rails up x2 and call light is within reach of the patient. Instructed on POC and to call for assist PRN.
[2019-09-29 22:00] VITALS: BP 161/72
[2019-09-29] MEDS: ATORVASTATIN 20 MG TAB PO SCH (22:14)
[2019-09-29] MEDS: amLODIPine BESYLATE 5 MG TAB PO SCH (22:15)
[2019-09-30 05:00] VITALS: BP 102/60
[2019-09-30] MEDS: InsuLIN REG 1unit/0.01ml Soln (100units/ml) SC SCH ×4 (05:35→22:30)
[2019-09-30] MEDS: ACCU-CHEK COMFORT CURVE STRIP VI SCH ×4 (05:35→22:31)
--- NOTE | 2019-09-30 07:31 | NUR ---
Closing note: Patient resting in bed with breaths even and unlabored. No S/S of distress SOB noted. Connected to water seal chest tube, no wall suction on left side and is on 3 liters nasal cannula. Call light is within reach of the patient and bed is in lowest locked position. Care endorsed to day shift nurse.
--- NOTE | 2019-09-30 07:34 | NUR ---
Respiratory note: PT AWAKE, AND ALERT. NO REPIRATORY DISTRESS NOTED. SPO2 98% ON 3L NC, HR 68, RR 18, BS CLEAR/DIMINISHED BILATERALLY. NO PRN MEDNEB TX INDICATED AT THIS TIME. PT INFORMED TO PUSH CALL BUTTON IF INCREASED WOB, SOB, OR WHEEZING OCCURS.
[2019-09-30 09:00] VITALS: BP 109/63
--- NOTE | 2019-09-30 10:15 | NUR ---
Patient in stress lab, [employer] to clamp chest tube per orders. Patient on 3L nasal cannula.
[2019-09-30] MEDS: FAMOTIDINE 20 MG TAB PO SCH ×2 (11:55→22:29)
[2019-09-30] MEDS: ASPirin 81 mg TAB PO SCH (11:56)
[2019-09-30] MEDS: GABAPENTIN 300 MG CAP PO SCH ×2 (11:56→22:29)
[2019-09-30] MEDS: LISINOPRIL 5 MG TAB PO SCH (11:58)
[2019-09-30] MEDS: ENOXAPARIN SOD 40 MG/0.4 ML SYRINGE SC SCH (11:59)
--- NOTE | 2019-09-30 12:07 | NUR ---
Spoke to Dr. Hernandez telephone Regarding pain medication. Orders, received, read back and verified.
[2019-09-30] MEDS: HYDROcodone-ACET 5/325MG TAB PO PRN (12:22)
[2019-09-30 13:00] VITALS: BP 137/79
--- NOTE | 2019-09-30 13:10 | NUR ---
Patient to CT scan for procedure.
[2019-09-30] MEDS ORDERED: IOHEXOL 350 MG/ML 100ML IJ ONE (13:18)
--- NOTE | 2019-09-30 13:53 | NUR ---
Patient returned from CT Chest tube removed by Dr. Ball, site to the upper left chest is clean and dry and intact. No swelling at this time, patient has no pain at this time. Breath sounds to the Left upper lung with fine crackles, Left lower lung diminished with fine crackles. Will continue to monitor Q1h and PRN.
--- NOTE | 2019-09-30 15:38 | NUR ---
Spoke to Dr. Ball Patient upper left chest is starting to develop subcutaneous emphysema, doctor informed. Orders received, read back and verified. Will order chest xray.
[2019-09-30] MEDS ORDERED: LIDOCAINE 2%HCL (LOCAL ANESTH.) INJ 20ML MDV ONE (16:56)
--- NOTE | 2019-09-30 16:59 | NUR ---
Patient to procedure for chest tube placement.
[2019-09-30 17:16] VITALS: BP 145/84
--- NOTE | 2019-09-30 17:59 | NUR ---
Patient returned from Chest tube placement procedure Chest tube drain placed to right upper chest. Portable. Patient is on 3L nasal cannula, no s/s of distress at this time, oxygen saturation 94%. Patient is comfortable at this time. Site to the left upper chest still showing signs of subcutaneous emphysema. Will continue to monitor Q1h and PRN.
[2019-09-30 20:00] VITALS: BP 123/75
--- NOTE | 2019-09-30 20:40 | NUR ---
Respiratory note: PT ASSESSED FOR PRN MED NEB TX. HR 81, RR 16, SPO2 92% ON 3L NC. NO SIGNS OF ANY RESPIRATORY DISTRESS NOTED. ADVISED PT TO CALL IF TX IS NEEDED. RT NAME AND PAGER NUMBER WRITTEN ON PT'S BOARD.
[2019-09-30 22:00] VITALS: BP 150/81
[2019-09-30] MEDS: amLODIPine BESYLATE 5 MG TAB PO SCH (22:27)
[2019-09-30] MEDS: ATORVASTATIN 20 MG TAB PO SCH (22:29)
[2019-10-01] VITALS (7 sets, daily range): BP systolic 104–139; BP diastolic 63–74
[2019-10-01] MEDS: ACCU-CHEK COMFORT CURVE STRIP VI SCH ×4 (05:52→20:27)
[2019-10-01] MEDS: InsuLIN REG 1unit/0.01ml Soln (100units/ml) SC SCH ×4 (05:53→20:26)
--- NOTE | 2019-10-01 08:05 | NUR ---
Opening note Assumed care of patient, he is A & O x4, sitting up eating breakfast independently, no s/s of distress, patient is on 3L NC, heimlich valve to the left upper chest intact, subcutaneous emphysema is decreased from yesterday. Patient comfortable at this time. POC discussed, bed is in lowest, locked position, call light within reach, will continue to monitor Q1h and PRN.
--- NOTE | 2019-10-01 10:21 | NUR ---
Dr. Hernandez at bedside. Awaiting stress test results. No further orders at this time.
[2019-10-01] MEDS: FAMOTIDINE 20 MG TAB PO SCH ×2 (10:29→20:25)
[2019-10-01] MEDS: GABAPENTIN 300 MG CAP PO SCH ×2 (10:29→20:20)
[2019-10-01] MEDS: ENOXAPARIN SOD 40 MG/0.4 ML SYRINGE SC SCH (10:29)
[2019-10-01] MEDS: ASPirin 81 mg TAB PO SCH (10:30)
[2019-10-01] MEDS: LISINOPRIL 5 MG TAB PO SCH (10:30)
[2019-10-01] MEDS: HYDROcodone-ACET 5/325MG TAB PO PRN ×2 (10:53→20:23)
--- NOTE | 2019-10-01 12:00 | NUR ---
ASSESSED PT FOR PRN MED NEB TX, PT IN NO RESPIRATORY DISTRESS ON 3L NC WITH SPO2 93%, HR 66, RR 16, WITH CLEAR BS. NO DISTRESS NOTED. WILL CONTINUE TO MONITOR PT.
--- NOTE | 2019-10-01 19:40 | NUR ---
Respiratory note: PT ASSESSED FOR PRN MED NEB TX. HR 61, RR 16, SPO2 94% ON 3L NC. NO SIGNS OF ANY RESPIRATORY DISTRESS NOTED. ADVISED PT TO CALL IF TX IS NEEDED. RT NAME AND PAGER NUMBER WRITTEN ON PT'S BOARD.
[2019-10-01] MEDS: ATORVASTATIN 20 MG TAB PO SCH (20:23)
[2019-10-01] MEDS: amLODIPine BESYLATE 5 MG TAB PO SCH (20:24)
[2019-10-02] MEDS: ACCU-CHEK COMFORT CURVE STRIP VI SCH ×3 (04:35→21:10)
[2019-10-02] MEDS: InsuLIN REG 1unit/0.01ml Soln (100units/ml) SC SCH ×3 (04:36→18:00)
[2019-10-02 05:00] VITALS: BP 115/65
--- NOTE | 2019-10-02 07:45 | NUR ---
Opening Note Assumed care of patient, he is A& O x4, no s/s of distress at this time. Patient is comfortable. Chest tube with heimlich valve to the left upper chest is patent and functional, dressing clean and dry. POC discussed with patient. Bed is in low, locked position, call light within reach. Will continue to monitor Q1h and PRN.
[2019-10-02 09:00] VITALS: BP 102/49
--- NOTE | 2019-10-02 10:00 | NUR ---
Patient feeling lightheaded This RN assessed patient, no s/s of distress, patient lying in bed, room felt warm. BP 130/63, HR 62, O2 97 on 3L NC. Breath sounds to clear and audible bilaterally. Blood glucose checked, was 134. Patient has been ambulating this morning. Educated patient to take it easy, he may be over exerting himself. Turned down temperature in room. Will continue to monitor and notify MD.
--- NOTE | 2019-10-02 10:40 | NUR ---
Dr. Hernandez at bedside Notified of lightheaded episode. No further orders at this time. Awaiting stress test results and re-evaluation by radiologist tomorrow.
[2019-10-02] MEDS: ASPirin 81 mg TAB PO SCH (11:08)
[2019-10-02] MEDS: GABAPENTIN 300 MG CAP PO SCH ×2 (11:08→21:10)
[2019-10-02] MEDS: FAMOTIDINE 20 MG TAB PO SCH ×2 (11:09→21:22)
[2019-10-02] MEDS: HYDROcodone-ACET 5/325MG TAB PO PRN ×2 (11:09→21:11)
[2019-10-02] MEDS: LISINOPRIL 5 MG TAB PO SCH (11:11)
[2019-10-02] MEDS: ENOXAPARIN SOD 40 MG/0.4 ML SYRINGE SC SCH (11:12)
[2019-10-02 13:00] VITALS: BP 114/61
--- NOTE | 2019-10-02 14:16 | NUR ---
NUTRITION ASSESSMENT NOTES Please refer to link notes of nutrition screen form filed under the intervention section of the plan of care for further details. Est. Needs: 1850 kcal to 2100 kcal (20-25 kcal/kgBW), 67 gms to 84 gms pro (0.8-1.0 gms/kgBW). Will continue to monitor pertinent labs and reassess nutrient need prn Thank you. Addendum: 10/02/19 at [address] Amended: Links added.
[2019-10-02 17:07] VITALS: BP 123/71
[2019-10-02 20:00] VITALS: BP 130/63
--- NOTE | 2019-10-02 20:10 | NUR ---
Respiratory note: PT ASSESSED FOR PRN MED NEB TX. HR 75, RR 14, SPO2 95% ON RA. NO SIGNS OF ANY RESPIRATORY DISTRESS NOTED. ADVISED PT TO CALL IF TX IS NEEDED. RT NAME AND PAGER NUMBER WRITTEN ON PT'S BOARD,
[2019-10-02] MEDS: amLODIPine BESYLATE 5 MG TAB PO SCH (21:16)
[2019-10-02] MEDS: ATORVASTATIN 20 MG TAB PO SCH (21:17)
[2019-10-02 22:00] VITALS: BP 125/77
[2019-10-03] MEDS: ACCU-CHEK COMFORT CURVE STRIP VI SCH ×4 (02:24→18:00)
[2019-10-03 05:00] VITALS: BP_SYST 110; BP_SYST 120; BP_DIAS 60; BP_DIAS 78
[2019-10-03] MEDS: InsuLIN REG 1unit/0.01ml Soln (100units/ml) SC SCH ×4 (05:45→18:00)
[2019-10-03 09:00] VITALS: BP 115/73
[2019-10-03] MEDS: LISINOPRIL 5 MG TAB PO SCH (09:15)
[2019-10-03] MEDS: ASPirin 81 mg TAB PO SCH (09:15)
[2019-10-03] MEDS: GABAPENTIN 300 MG CAP PO SCH ×2 (09:15→22:10)
[2019-10-03] MEDS: ENOXAPARIN SOD 40 MG/0.4 ML SYRINGE SC SCH (09:16)
[2019-10-03] MEDS: FAMOTIDINE 20 MG TAB PO SCH ×2 (09:16→22:10)
[2019-10-03] MEDS: HYDROcodone-ACET 5/325MG TAB PO PRN ×2 (09:21→22:11)
--- NOTE | 2019-10-03 09:43 | NUR ---
Respiratory note: HR 64, RR 20, SPO2 94% ON RA BS CLEAR. PRN MED NEB TX NOT INDICATED TA THIS TIME. NO SIGNS OR SYMPTOMS OF RESPIRATORY DISTRESS NOTED. PT INFORMED TO HIT CALL BUTTON IF FEELING SOB OR WHEEZING.
[2019-10-03 12:45] VITALS: BP 121/71
--- NOTE | 2019-10-03 13:20 | NUR ---
MD LLANOS ROUNDED ON PATIENT, VIET CALLED RADIOLOIST TO REMOVE CHEST TUBE CATHETER PER RADIOLOGY HE WILL REMOVE THIS AFTERNOON, VIET CALLED CARDIOLOGY [facility] TO REVIEW STRESS TEST RESULT AND CLEARANCE FOR DISCHARGE, PER MD LLANOS POSSIBLE DISCHARGE PLANNING FOR TOMORROW
--- NOTE | 2019-10-03 15:54 | NUR ---
leena energy conservation specialist rounded on patient explained heart cath procedure to patient will put in orders for left heart cath for tomorrow
[2019-10-03] MEDS ORDERED: SODIUM CHLORIDE 0.9% 1,000 ML IV SCH (15:57)
[2019-10-03 17:00] VITALS: BP 119/71
--- NOTE | 2019-10-03 19:03 | NUR ---
ASSESSED PT @ THIS TIME FOR PRN MED NEB TX. PT IS AWAKE AND ALERT AND RESTING COMFORTABLY IN BED. HE STATES HIS BREATHING IS DOING FINE. NO DISTRESS NOTED. HE IS AWARE TO CALL IF HE FEELS SOB.
--- NOTE | 2019-10-03 19:37 | NUR ---
RECEIVED PATIENT FROM DAY SHIFT RN. PATIENT RESTING IN BED. NO S/S OF DISTRESS NOTED. C/O BACK PAIN @ /10. WILL COME BACK FOR PAIN MEDICATION LATER. INSTRUCTED PATIENT NPO AFTER MIDNIGHT. FOR PROCEDURE TOMORROW. POC INSTRUCTED AND ENCOURAGED PATIENT TO CALL FOR CONCIERGE IF NEEDED. BED IN LOWEST POSITION WITH SIDE RAILS UP X 2. CALL MARY WITHIN REACH. ALARM ON. CONTINUE TO MONITOR FOR CHANGES Q1H AND PRN.
[2019-10-03 22:00] VITALS: BP 155/81
[2019-10-03] MEDS: ATORVASTATIN 20 MG TAB PO SCH (22:10)
[2019-10-03] MEDS: amLODIPine BESYLATE 5 MG TAB PO SCH (22:11)
--- NOTE | 2019-10-03 22:13 | NUR ---
PATIENT C/O SHAKING AND SWEATING. ACCU-CHECK, BS 127. TEMP 97.7. INSTRUCTED PATIENT TO RELAX. AND KEEP WARM. WILL COME BACK TO RECHECK HIM LATER. CONTINUE TO MONITOR.
[2019-10-04] MEDS: ACCU-CHEK COMFORT CURVE STRIP VI SCH ×4 (00:30→17:44)
[2019-10-04] MEDS: InsuLIN REG 1unit/0.01ml Soln (100units/ml) SC SCH ×4 (00:30→17:44)
--- NOTE | 2019-10-04 00:30 | NUR ---
ACCU-CHECK, BS 108.NO COVERAGE. CONTINUE TO MONITOR.
--- NOTE | 2019-10-04 01:00 | NUR ---
IV insertion IV access obtained, via clean sterile technique by inserting [20] gauge catheter at [LW] after [1] attempt(s). IV secured properly. No trauma to site. Patient tolerated well. IV ON LAC LEAKING AND removal IV DC'd with clean sterile technique, catheter fully intact. Pressure dressing applied to site. Patient tolerated well. NOTE:
--- NOTE | 2019-10-04 03:49 | NUR ---
PATIENT SLEEPING. NO S/S OF DISTRESS NOTED. CONTINUE CARE.
[2019-10-04 05:00] VITALS: BP 104/64
--- NOTE | 2019-10-04 06:27 | NUR ---
ACCU-CHECK, BS 95. NO COVERAGE. CONTINUE TO MONITOR.
[2019-10-04 06:46] LABS: Basophils # (auto) 0 uL; Basophils % (auto) 0.7 % (0.0-2.0); Eosinophils # (auto) 0.3 uL; Eosinophils % (auto) 4.3 % (0.0-7.0); Hematocrit 39.9 % (41.0-53.0); Hemoglobin 13.5 g/dL (13.5-17.5); Lymphocytes # (auto) 1.6 uL; Lymphocytes % (auto) 22.8 % (10.0-50.0); Mean Corpuscular Hemoglobin 31.1 pg (28.0-32.0); Mean Corpuscular Hgb Conc. 33.7 g/dL (32.0-36.0); Mean Corpuscular Volume 92.3 fL (80.0-100.0); Monocytes # (auto) 0.6 uL; Monocytes % (auto) 9.4 % (0.0-12.0); Neutrophils # (auto) 4.3 uL; Neutrophils % (auto) 62.8 % (37.0-80.0); Nucleated Red Blood Cells % 0.1 %; Platelet Count (auto) 156 10^3/uL (140-450); Red Blood Cells 4.33 10^6/uL (4.5-5.90); Red Cell Distribution Width 14.3 % (11.8-14.3); White Blood Cell 6.8 10^3/uL (4.4-10.8)
[2019-10-04 07:06] LABS: Calcium 8.4 mg/dL (8.5-10.1); Potassium 4.3 mmol/L (3.5-5.1)
[2019-10-04 07:07] LABS: BUN/Creatinine Ratio 27.6
--- NOTE | 2019-10-04 07:43 | NUR ---
Opening Shift Note Received report on the patient. Awake lying in bed. Patient shows no signs of distress at this time. Discussed plan of care with the patient. Bed in lowest position, side rails up x2, and the call light is within reach. Will continue to monitor
[2019-10-04 08:20] LABS: INR 0.99 (0.9-1.15); Partial Thromboplastin Time 27.9 sec (23.64-32.05)
[2019-10-04] MEDS ORDERED: ALPRAZolam 0.5 MG TAB PO ONE (09:00)
[2019-10-04 09:05] VITALS: BP 123/59
[2019-10-04] MEDS: ASPirin 81 mg TAB PO SCH (09:06)
[2019-10-04] MEDS: ENOXAPARIN SOD 40 MG/0.4 ML SYRINGE SC SCH (09:07)
--- NOTE | 2019-10-04 09:40 | NUR ---
MD LLANOS ROUNDED ON PATIENT UPDATED PT ON PLAN FOR HEART CATH TODAY PT VERBALIZED UNDERSTANDING
[2019-10-04] MEDS: LISINOPRIL 5 MG TAB PO SCH (09:42)
[2019-10-04] MEDS: GABAPENTIN 300 MG CAP PO SCH ×2 (09:42→21:37)
[2019-10-04] MEDS: FAMOTIDINE 20 MG TAB PO SCH ×2 (09:42→21:38)
--- NOTE | 2019-10-04 11:05 | NUR ---
Respiratory note: HR 70, RR 16, SPO2 92% ON RA BS CLEAR-DIMINISHED. PRN MED NEB TX NOT INDICATED AT THIS TIME. NO SIGNS OR SYMPTOMS OF RESPIRATORY DISTRESS NOTED. PT INFORMED TO HIT CALL BUTTON IF FEELING SOB OR WHEEZING.
[2019-10-04 12:40] VITALS: BP 103/64
--- NOTE | 2019-10-04 14:02 | NUR ---
MD QUEVEDO ROUNDED ON PATIENT PER SAE STRESS TEST WAS NEGATOVE LEFT HEART CATH IS CANCELED REVIEWED PLAN OF CARE WITH HOSPICE BEREAVEMENT COORDINATOR ISIDRO TO CANCEL PROCEDURE, PER SAE HE SPOKE TO DAWSON REGARDING STRESS TEST AND REVIEWED THAT IT IS NEGATIVE, CALLED MD LLANOS TO REPORT DECISION TO CANCEL LEFT HEART CATH, PER HE WILL PLAN TO DISCHARGE PATIENT TOMORROW
--- NOTE | 2019-10-04 15:11 | NUR ---
per patient he will amina his ride they live 10 minutes away, pt ate 75% of regular diet at lunch tolerated well no nausea or vomiting noted Addendum: 10/04/19 at 1543 by JUDITH BRODY RN wrong patient disregard
--- NOTE | 2019-10-04 16:28 | NUR ---
Assessment Patient is a 79 year old male who is alert and oriented. Patient informed me prior to admission he lived home with his Susanna [phone] and functioned independently. Patient has good family support. Patient informed me he is to return home post discharge and family will transport him home. Patients PCP is Dr. Luis Alfredo Hernandez. Patient has a wheelchair, cane and a walker for home use. There are no discharge needs identified at this time. I informed patient he has a right to speak to a professor of social work regarding all care. I informed patient he has a right to participate in any and all discharge planning. Patient does not have a POA and advanced directive. I have offered patient information on POA and advanced directives. I informed the patient the advantages and benefits of having an Advanced Directive. Patient verbalized understanding and agreed to discharge plan. Addendum: 10/04/19 at 1630 by Agueda SALEH Amended: Links added.
[2019-10-04 16:47] VITALS: BP 94/50
--- NOTE | 2019-10-04 19:15 | NUR ---
Respiratory note: ASSESSED PT FOR PRN MED NEB TX. PT IS CURRENTLY ON ROOM AIR: HR 80, RR 18, SPO2 95%. PT SHOWS NO S/S OF SOB OR RESPIRATORY DISTRESS. MED NEB TX NOT INDICATED AT THIS TIME. PT AWARE TO HAVE RT PAGED IF SOB OCCURS. WILL CONTINUE TO MONITOR
--- NOTE | 2019-10-04 19:49 | NUR ---
RECEIVED PATIENT FROM DAY SHIFT RN. PATIENT RESTING IN BED. NO S/S OF DISTRESS NOTED. C/O BACK PAIN @ 6/10. PATIENT PREFERRED TO HAVE PAIN MEDICATION AROUND BEDTIME. POC INSTRUCTED AND ENCOURAGED PATIENT TO CALL FOR DIE MAKER STAMPING IF NEEDED. BED IN LOWEST POSITION WITH SIDE RAILS UP X 2. CALL AMRY WITHIN REACH. ALARM ON. CONTINUE TO MONITOR FOR CHANGES Q1H AND PRN.
[2019-10-04] MEDS: amLODIPine BESYLATE 5 MG TAB PO SCH (21:37)
[2019-10-04] MEDS: ATORVASTATIN 20 MG TAB PO SCH (21:37)
[2019-10-04] MEDS: HYDROcodone-ACET 5/325MG TAB PO PRN (21:38)
[2019-10-04 22:00] VITALS: BP 99/57
[2019-10-05] MEDS: ACCU-CHEK COMFORT CURVE STRIP VI SCH ×2 (00:30→06:23)
[2019-10-05] MEDS: InsuLIN REG 1unit/0.01ml Soln (100units/ml) SC SCH ×2 (00:30→06:00)
--- NOTE | 2019-10-05 00:30 | NUR ---
ACCU-CHECK, BS 86. NO COVERAGE. CONTINUE TO MONITOR.
--- NOTE | 2019-10-05 02:49 | NUR ---
PATIENT SLEEPING. NO S/S OF DISTRESS NOTED. CONTINUE CARE.
[2019-10-05 03:26] VITALS: BP 99/57
[2019-10-05 05:00] VITALS: BP 112/58
--- NOTE | 2019-10-05 06:24 | NUR ---
ACCU-CHECK, BS 91. NO COVERAGE. CONTINUE TO MONITOR.
--- NOTE | 2019-10-05 07:54 | NUR ---
Opening Shift Note Assumed care of patient, awake and alert. No S/S of distress/SOB or pain. Instructed on POC and to call for assist PRN, will continue to monitor for changes Q1hr and PRN.
--- NOTE | 2019-10-05 08:34 | NUR ---
Respiratory note: PT AWAKE, AND ALERT. NO RESPIRATORY DISTRESS NOTED. SPO2 98% ON RA, HR 64, RR 16, BS CLEAR BILATERALLY. PRN MEDNEB TX NOT INDICATED AT THIS TIME. PT INFORMED TO PUSH CALL BUTTON IF INCREASED WOB, SOB, OR WHEEZING OCCURS.
[2019-10-05 09:00] VITALS: BP 99/62
[2019-10-05] MEDS: ENOXAPARIN SOD 40 MG/0.4 ML SYRINGE SC SCH (09:22)
[2019-10-05] MEDS: FAMOTIDINE 20 MG TAB PO SCH (09:22)
[2019-10-05] MEDS: LISINOPRIL 5 MG TAB PO SCH (09:23)
[2019-10-05] MEDS: ASPirin 81 mg TAB PO SCH (09:23)
[2019-10-05] MEDS: GABAPENTIN 300 MG CAP PO SCH (09:23)
[2019-10-05 11:23] VITALS: BP 99/62
--- NOTE | 2019-10-05 11:30 | NUR ---
md townsend rounded on aptient patient ok to discharge home
== END 2019-10-05 12:15 | disposition home or self-care (01) | DRG 201 ==
LOC: ER 18:07 → TELE-WESTW 18:08
PROVIDERS: ADMIT Nurse Practitioner; ATTEND Family Medicine
PROC: 0BBG3ZX Excision of Left Upper Lung Lobe, Percutaneous Approach, Diagnostic (ICD-10-PCS; 2019-09-29)
PROC: 0W9B30Z Drainage of Left Pleural Cavity with Drainage Device, Percutaneous Approach (ICD-10-PCS; principal; 2019-09-30)
DX: J98.2 Interstitial emphysema (principal); R07.9 Chest pain, unspecified; E11.42 Type 2 diabetes mellitus with diabetic polyneuropathy; J44.9 Chronic obstructive pulmonary disease, unspecified; E78.00 Pure hypercholesterolemia, unspecified; Z96.643 Presence of artificial hip joint, bilateral; G89.29 Other chronic pain; I11.0 Hypertensive heart disease with heart failure; E78.5 Hyperlipidemia, unspecified; I50.9 Heart failure, unspecified; Z79.82 Long term (current) use of aspirin; Z79.84 Long term (current) use of oral hypoglycemic drugs; Z79.899 Other long term (current) drug therapy; Z86.11 Personal history of tuberculosis; Z86.711 Personal history of pulmonary embolism; Z98.61 Coronary angioplasty status; Z88.8 Allergy status to other drugs, medicaments and biological substances; Z82.49 Family history of ischemic heart disease and other diseases of the circulatory system
CPT/HCPCS: 10022; 36415; 71045; 71250; 71275; 77012; 78452; 80048; 80053; 82962; 83735; 83880; 84443; 84484; 85025; 85379; 85610; 85730; 93005; 93017; 93306; 93886; 93970; 94640; 96374; A4223; C1729; G0378; J0153; J1815; J2250

== ENCOUNTER → 2019-09-28 | Outpatient (CLI) | payer OTHER ==
[2019-09-28 11:38] LABS: Basophils # (auto) 0.1 uL; Basophils % (auto) 0.7 % (0.0-2.0); Eosinophils # (auto) 0.1 uL; Eosinophils % (auto) 0.9 % (0.0-7.0); Hematocrit 42.7 % (41.0-53.0); Hemoglobin 14.2 g/dL (13.5-17.5); Lymphocytes # (auto) 2.1 uL; Lymphocytes % (auto) 22.7 % (10.0-50.0); Mean Corpuscular Hemoglobin 30.9 pg (28.0-32.0); Mean Corpuscular Hgb Conc. 33.2 g/dL (32.0-36.0); Mean Corpuscular Volume 93.2 fL (80.0-100.0); Monocytes # (auto) 0.7 uL; Monocytes % (auto) 7.4 % (0.0-12.0); Neutrophils # (auto) 6.2 uL; Neutrophils % (auto) 68.3 % (37.0-80.0); Platelet Count (auto) 187 10^3/uL (140-450); Red Blood Cells 4.58 10^6/uL (4.5-5.90); Red Cell Distribution Width 14.3 % (11.8-14.3); White Blood Cell 9.1 10^3/uL (4.4-10.8)
[2019-09-28 12:18] LABS: INR 0.98 (0.9-1.15); Partial Thromboplastin Time 26.6 sec (23.64-32.05)
== END | disposition home or self-care (01) ==
LOC: LAB 11:04
PROVIDERS: ATTEND Family Medicine
DX: Z01.812 Encounter for preprocedural laboratory examination (principal); R91.8 Other nonspecific abnormal finding of lung field
CPT/HCPCS: 36415; 85025; 85610; 85730

== ENCOUNTER → 2019-12-06 | Outpatient (CLI) | payer OTHER | END | disposition home or self-care (01) | LOC: LAB 15:00 | PROVIDERS: ATTEND Physician Assistant | DX: C44.619 Basal cell carcinoma of skin of left upper limb, including shoulder (principal) ==

== ENCOUNTER 2020-01-04 08:00 | Inpatient (IN) | payer OTHER ==
[~2020-01-04] VITALS: Ht 172.7 cm; Wt 81.4 kg
[2020-01-04] MEDS ORDERED: IPRATROPIUM BROM 0.5 MG/2.5ML INH SOL HHN ONE (08:15)
[2020-01-04] MEDS ORDERED: methylPREDNISolone SOD SUCC 125 MG/2 ML VL IV ONE (08:15)
[2020-01-04] MEDS ORDERED: ALBUTEROL SULF 2.5 MG/0.5ML(0.5%) NEB SOLN HHN ONE (08:15)
[2020-01-04 08:46] LABS: Basophils # (auto) 0 10 ^3/uL (0-0.2); Basophils % (auto) 0.5 % (0.0-2.0); Eosinophils # (auto) 0.1 10 ^3/uL (0-0.8); Eosinophils % (auto) 1.2 % (0.0-7.0); Hematocrit 43.9 % (41.0-53.0); Hemoglobin 14.6 g/dL (13.5-17.5); Lymphocytes # (auto) 1.5 10 ^3/uL (0.4-5.4); Lymphocytes % (auto) 17.8 % (10.0-50.0); Mean Corpuscular Hemoglobin 30.7 pg (28.0-32.0); Mean Corpuscular Hgb Conc. 33.2 g/dL (32.0-36.0); Mean Corpuscular Volume 92.6 fL (80.0-100.0); Monocytes # (auto) 0.6 10 ^3/uL (0-1.3); Monocytes % (auto) 6.6 % (0.0-12.0); Neutrophils # (auto) 6.3 10 ^3/uL (1.6-8.6); Neutrophils % (auto) 73.9 % (37.0-80.0); Platelet Count (auto) 169 10^3/uL (140-450); Red Blood Cells 4.74 10^6/uL (4.5-5.90); Red Cell Distribution Width 13.6 % (11.8-14.3); White Blood Cell 8.5 10^3/uL (4.4-10.8)
[2020-01-04 08:59] LABS: Albumin 3.6 g/dL (3.4-5.0); Anion Gap 6 (5-15); Blood Urea Nitrogen 19 mg/dL (7-18); Carbon Dioxide 25 mmol/L (21-32); Chloride 106 mmol/L (98-107); Glucose 115 mg/dL (74-106); Sodium 137 mmol/L (136-145)
[2020-01-04 09:05] LABS: Alanine Aminotransferase 17 U/L (16-61); Alkaline Phosphatase 80 U/L (45-117); Aspartate Aminotransferase 16 U/L (15-37); BUN/Creatinine Ratio 17.4; Bilirubin, Total 0.5 mg/dL (0.2-1.0); GFR African American 84 mL/min; GFR Non-African American 69 mL/min
[2020-01-04] MEDS ORDERED: ACETAMINOPHEN 500 MG TAB PO PRN (11:00)
[2020-01-04] MEDS ORDERED: HYDROcodone-ACET 5/325MG TAB PO PRN (11:00)
[2020-01-04] MEDS ORDERED: IPRATROPIUM BROM 0.5 MG/2.5ML INH SOL NEB PRN (11:00)
[2020-01-04] MEDS ORDERED: ALBUTEROL SULF 2.5 MG/0.5ML(0.5%) NEB SOLN NEB PRN (11:00)
[2020-01-04] MEDS ORDERED: MORPHINE SULF INJ 2 MG/ML SYRINGE 1ML IV PRN ×2 (11:00)
[2020-01-04] MEDS ORDERED: ONDANSETRON HCL 4 MG/2 ML VIAL IV PRN (11:00)
[2020-01-04] MEDS ORDERED: SODIUM CHLORIDE 0.9% 1,000 ML IV ONE (11:00)
[2020-01-04] MEDS ORDERED: DEXTROSE (50%) 50ML SYRG IV PRN (11:00)
[2020-01-04] MEDS ORDERED: LISINOPRIL 5 MG TAB PO ONE (11:45)
[2020-01-04] MEDS ORDERED: FAMOTIDINE 20 MG TAB PO ONE (11:45)
[2020-01-04] MEDS ORDERED: ASPirin 81 mg TAB PO ONE (11:45)
[2020-01-04] MEDS ORDERED: GABAPENTIN 300 MG CAP PO ONE (11:45)
[2020-01-04] MEDS ORDERED: HYDROcodone-ACET 5/325MG TAB PO ONE (11:45)
[2020-01-04] MEDS: ACCU-CHEK COMFORT CURVE STRIP VI SCH ×3 (12:30→22:19)
[2020-01-04] MEDS: InsuLIN REG 1unit/0.01ml Soln (100units/ml) SC SCH ×3 (12:38→22:00)
[2020-01-04 12:57] VITALS: BP 120/67
[2020-01-04 14:34] VITALS: BP 134/85
[2020-01-04 17:00] VITALS: BP 140/77
[2020-01-04 20:00] VITALS: BP 155/79
[2020-01-04 22:00] VITALS: BP 155/79
[2020-01-04] MEDS: GABAPENTIN 300 MG CAP PO SCH (22:17)
[2020-01-04] MEDS: HYDROcodone-ACET 5/325MG TAB PO SCH (22:18)
[2020-01-04] MEDS: amLODIPine BESYLATE 5 MG TAB PO SCH (22:19)
[2020-01-05 03:45] LABS: BUN/Creatinine Ratio 23.5; Calcium 9.2 mg/dL (8.5-10.1); Potassium 4.1 mmol/L (3.5-5.1)
[2020-01-05 05:00] VITALS: BP 122/79
[2020-01-05] MEDS: ACCU-CHEK COMFORT CURVE STRIP VI SCH ×4 (06:16→22:00)
[2020-01-05] MEDS: InsuLIN REG 1unit/0.01ml Soln (100units/ml) SC SCH ×4 (06:16→20:37)
[2020-01-05 09:00] VITALS: BP 143/78
[2020-01-05] MEDS: ASPirin 81 mg TAB PO SCH (10:44)
[2020-01-05] MEDS: ALPRAZolam 0.5 MG TAB PO SCH (10:45)
[2020-01-05] MEDS: FAMOTIDINE 20 MG TAB PO SCH (10:45)
[2020-01-05] MEDS: GABAPENTIN 300 MG CAP PO SCH ×2 (10:45→20:36)
[2020-01-05] MEDS: HYDROcodone-ACET 5/325MG TAB PO SCH (10:45)
[2020-01-05] MEDS: LISINOPRIL 5 MG TAB PO SCH (10:46)
[2020-01-05 13:00] VITALS: BP 140/79
[2020-01-05] MEDS ORDERED: ALBUTEROL SULF 2.5 MG/0.5ML(0.5%) NEB SOLN NEB PRN (13:30)
[2020-01-05] MEDS ORDERED: predniSONE 20 MG TAB PO ONE (13:30)
[2020-01-05] MEDS ORDERED: AZITHROMYCIN 250 MG TAB PO ONE (13:30)
[2020-01-05 17:00] VITALS: BP 152/89
[2020-01-05] MEDS: ALBUTEROL SULF 2.5 MG/0.5ML(0.5%) NEB SOLN NEB SCH ×2 (18:08→22:08)
[2020-01-05] MEDS: IPRATROPIUM BROM 0.5 MG/2.5ML INH SOL NEB SCH ×2 (18:08→22:08)
[2020-01-05 20:00] VITALS: BP 143/78
[2020-01-05 22:00] VITALS: BP 151/85
[2020-01-05] MEDS ORDERED: ATORVASTATIN 20 MG TAB PO SCH (22:00)
[2020-01-05] MEDS: BUDESONIDE (INHALATION) 0.5 MG/2 ML NEB NEB SCH (22:08)
[2020-01-05] MEDS: amLODIPine BESYLATE 5 MG TAB PO SCH (22:13)
[2020-01-06] MEDS: ALBUTEROL SULF 2.5 MG/0.5ML(0.5%) NEB SOLN NEB SCH ×4 (02:07→14:12)
[2020-01-06] MEDS: IPRATROPIUM BROM 0.5 MG/2.5ML INH SOL NEB SCH ×4 (02:07→14:12)
[2020-01-06 05:00] VITALS: BP 166/96
[2020-01-06] MEDS: InsuLIN REG 1unit/0.01ml Soln (100units/ml) SC SCH ×2 (06:03→11:30)
[2020-01-06] MEDS: ACCU-CHEK COMFORT CURVE STRIP VI SCH ×2 (06:03→11:43)
[2020-01-06 08:15] LABS: Basophils # (auto) 0.1 10 ^3/uL (0-0.2); Basophils % (auto) 0.7 % (0.0-2.0); Eosinophils # (auto) 0 10 ^3/uL (0-0.8); Eosinophils % (auto) 0.4 % (0.0-7.0); Hematocrit 43.9 % (41.0-53.0); Hemoglobin 14.6 g/dL (13.5-17.5); Lymphocytes % (auto) 16.8 % (10.0-50.0); Mean Corpuscular Hemoglobin 31.1 pg (28.0-32.0); Mean Corpuscular Hgb Conc. 33.2 g/dL (32.0-36.0); Mean Corpuscular Volume 93.6 fL (80.0-100.0); Monocytes % (auto) 7.9 % (0.0-12.0); Neutrophils % (auto) 74.2 % (37.0-80.0); Platelet Count (auto) 179 10^3/uL (140-450); Red Blood Cells 4.69 10^6/uL (4.5-5.90); Red Cell Distribution Width 13.7 % (11.8-14.3); White Blood Cell 12.1 10^3/uL (4.4-10.8)
[2020-01-06 08:33] LABS: Anion Gap 7 (5-15); BUN/Creatinine Ratio 27.4; Blood Urea Nitrogen 23 mg/dL (7-18); Calcium 8.9 mg/dL (8.5-10.1); Carbon Dioxide 22 mmol/L (21-32); Chloride 109 mmol/L (98-107); GFR African American 113 mL/min; GFR Non-African American 93 mL/min; Glucose 93 mg/dL (74-106); Magnesium 2.5 mg/dL (1.6-2.6); Sodium 138 mmol/L (136-145)
[2020-01-06 09:00] VITALS: BP 145/81
[2020-01-06] MEDS ORDERED: predniSONE 20 MG TAB PO SCH (10:00)
[2020-01-06] MEDS ORDERED: AZITHROMYCIN 250 MG TAB PO SCH (10:00)
[2020-01-06] MEDS: LISINOPRIL 5 MG TAB PO SCH (10:14)
[2020-01-06] MEDS: ASPirin 81 mg TAB PO SCH (10:15)
[2020-01-06] MEDS: GABAPENTIN 300 MG CAP PO SCH (10:15)
[2020-01-06] MEDS: ALPRAZolam 0.5 MG TAB PO SCH (10:16)
[2020-01-06] MEDS: FAMOTIDINE 20 MG TAB PO SCH (10:16)
[2020-01-06] MEDS: BUDESONIDE (INHALATION) 0.5 MG/2 ML NEB NEB SCH (10:17)
[2020-01-06 13:02] VITALS: BP 144/79
[2020-01-06] MEDS ORDERED: AZIT500T PO (13:54)
[2020-01-06 15:33] VITALS: BP 136/76
[2020-01-06 16:41] VITALS: BP 99/69
== END 2020-01-06 16:10 | disposition home or self-care (01) | DRG 189 ==
LOC: EDBD 08:00 → ER 08:00 → TELE 08:01 → TELE-WESTW 13:50
PROVIDERS: ADMIT Nurse Practitioner Acute Care; ATTEND Internal Medicine
DX: J96.00 Acute respiratory failure, unspecified whether with hypoxia or hypercapnia (principal); J44.1 Chronic obstructive pulmonary disease with (acute) exacerbation; F41.9 Anxiety disorder, unspecified; N18.3 Chronic kidney disease, stage 3 (moderate); E11.22 Type 2 diabetes mellitus with diabetic chronic kidney disease; E78.5 Hyperlipidemia, unspecified; F41.1 Generalized anxiety disorder; I25.10 Atherosclerotic heart disease of native coronary artery without angina pectoris; I12.9 Hypertensive chronic kidney disease with stage 1 through stage 4 chronic kidney disease, or unspecified chronic kidney disease; Z96.643 Presence of artificial hip joint, bilateral; Z96.651 Presence of right artificial knee joint; R91.1 Solitary pulmonary nodule; G47.9 Sleep disorder, unspecified; Z79.899 Other long term (current) drug therapy; Z82.49 Family history of ischemic heart disease and other diseases of the circulatory system; Z87.891 Personal history of nicotine dependence; Z98.49 Cataract extraction status, unspecified eye
CPT/HCPCS: 36415; 36600; 70450; 71045; 71046; 80048; 80053; 82533; 82805; 82962; 83036; 83605; 83735; 83880; 84443; 84484; 85025; 85379; 87040; 87804; 93005; 94640; 94644; 96374; 97163; G0378; J1815

== ENCOUNTER 2020-06-27 19:29 | Emergency (ER) | payer OTHER ==
[~2020-06-27] VITALS: Ht 172.7 cm; Wt 84.8 kg
[~2020-06-27 19:29] MED LIST changes: +AZIT500T PO
[2020-06-27 22:41] LABS: Basophils # (auto) 0.1 10 ^3/uL (0-0.2); Basophils % (auto) 0.6 % (0.0-2.0); Eosinophils # (auto) 0.1 10 ^3/uL (0-0.8); Eosinophils % (auto) 0.6 % (0.0-7.0); Hematocrit 42.6 % (41.0-53.0); Hemoglobin 13.8 g/dL (13.5-17.5); Lymphocytes # (auto) 1.4 10 ^3/uL (0.4-5.4); Lymphocytes % (auto) 14.3 % (10.0-50.0); Mean Corpuscular Hemoglobin 30.4 pg (28.0-32.0); Mean Corpuscular Hgb Conc. 32.4 g/dL (32.0-36.0); Mean Corpuscular Volume 93.8 fL (80.0-100.0); Monocytes # (auto) 0.6 10 ^3/uL (0-1.3); Monocytes % (auto) 6.4 % (0.0-12.0); Neutrophils # (auto) 7.9 10 ^3/uL (1.6-8.6); Neutrophils % (auto) 78.1 % (37.0-80.0); Platelet Count (auto) 138 10^3/uL (140-450); Red Blood Cells 4.54 10^6/uL (4.5-5.90); Red Cell Distribution Width 13.7 % (11.8-14.3); White Blood Cell 10.1 10^3/uL (4.4-10.8)
[2020-06-27 22:44] LABS: Chloride 103 mmol/L (98-107); Potassium 4.5 mmol/L (3.5-5.1); Sodium 129 mmol/L (136-145)
[2020-06-27 22:49] LABS: Alanine Aminotransferase 19 U/L (16-61); Alkaline Phosphatase 86 U/L (45-117); Anion Gap 8 (5-15); Aspartate Aminotransferase 20 U/L (15-37); BUN/Creatinine Ratio 19.6; Bilirubin, Total 0.4 mg/dL (0.2-1.0); Blood Urea Nitrogen 20 mg/dL (7-18); Carbon Dioxide 18 mmol/L (21-32); GFR African American 90 mL/min; GFR Non-African American 75 mL/min; Glucose 109 mg/dL (74-106); Total Protein 6.9 g/dL (6.4-8.2)
[2020-06-27] MEDS ORDERED: SODIUM CHLORIDE 0.9% 1,000 ML IV ONE (23:45)
[2020-06-28] MEDS: methylPREDNISolone SOD SUCC 125 MG/2 ML VL IV ONE ×2 (01:05→01:08)
[2020-06-28 01:44] LABS: INR 0.97 (0.9-1.15); Partial Thromboplastin Time 28.9 sec (23.0-31.2)
[2020-06-28 01:49] LABS: Urine Bacteria FEW /hpf (None Seen); Urine Blood Negative /uL (Negative); Urine Specific Gravity 1.004 (1.001-1.035); Urine WBC 5 /hpf (0 - 3)
[2020-06-28 02:00] VITALS: BP 136/83
== END 2020-06-28 02:32 | disposition home or self-care (01) ==
LOC: ER 19:29 → EDBD 19:29 → ER 06-28 02:32
DX: J44.1 Chronic obstructive pulmonary disease with (acute) exacerbation (principal); J45.901 Unspecified asthma with (acute) exacerbation; Z20.828 Contact with and (suspected) exposure to other viral communicable diseases
CPT/HCPCS: 36415; 71045; 74176; 80053; 81001; 83605; 83880; 84484; 85025; 85610; 85730; 87426; 93005; 96361; 96374; 99285; C9803; J2930; J7030; U0003

== ENCOUNTER → 2021-01-21 | Outpatient (CLI) | payer OTHER ==
[~2021-01-21] MED LIST changes: +AMLO-489 PO; -AMLO5TAB15 PO
[2021-01-21 08:11] LABS: Basophils # (auto) 0 10 ^3/uL (0-0.2); Basophils % (auto) 0.6 % (0.0-2.0); Eosinophils # (auto) 0.2 10 ^3/uL (0-0.8); Eosinophils % (auto) 2.3 % (0.0-7.0); Hematocrit 43.9 % (41.0-53.0); Lymphocytes % (auto) 24.5 % (10.0-50.0); Mean Corpuscular Hemoglobin 31.7 pg (28.0-32.0); Mean Corpuscular Hgb Conc. 34.3 g/dL (32.0-36.0); Mean Corpuscular Volume 92.6 fL (80.0-100.0); Monocytes # (auto) 0.6 10 ^3/uL (0-1.3); Monocytes % (auto) 7.2 % (0.0-12.0); Neutrophils # (auto) 5.3 10 ^3/uL (1.6-8.6); Neutrophils % (auto) 65.4 % (37.0-80.0); Platelet Count (auto) 160 10^3/uL (140-450); Red Blood Cells 4.74 10^6/uL (4.5-5.90); Red Cell Distribution Width 13.9 % (11.8-14.3)
[2021-01-21 08:14] LABS: Urine Bacteria NONE SEEN /hpf (None Seen); Urine Blood 1+ /uL (Negative); Urine Hyaline Cast FEW /lpf (0 - 2); Urine WBC 2 /hpf (0 - 3)
[2021-01-21 09:39] LABS: Albumin 3.6 g/dL (3.4-5.0); BUN/Creatinine Ratio 19.4; Calcium 9.4 mg/dL (8.5-10.1); Potassium 4.9 mmol/L (3.5-5.1)
[2021-01-21 09:43] LABS: Bilirubin, Total 0.4 mg/dL (0.2-1.0); Total Protein 7.7 g/dL (6.4-8.2)
== END | disposition home or self-care (01) ==
LOC: LAB 07:45
PROVIDERS: ATTEND Family Medicine
DX: I12.9 Hypertensive chronic kidney disease with stage 1 through stage 4 chronic kidney disease, or unspecified chronic kidney disease (principal); E11.22 Type 2 diabetes mellitus with diabetic chronic kidney disease; N18.4 Chronic kidney disease, stage 4 (severe); E78.2 Mixed hyperlipidemia; J43.2 Centrilobular emphysema; E55.9 Vitamin D deficiency, unspecified
CPT/HCPCS: 36415; 80053; 80061; 81001; 82043; 82306; 82607; 83036; 85025

== ENCOUNTER 2021-03-27 21:44 | Observation (INO) | payer OTHER ==
[~2021-03-27] VITALS: Ht 177.8 cm; Wt 88.2 kg
[2021-03-27 22:12] LABS: Basophils # (auto) 0.1 10 ^3/uL (0-0.2); Basophils % (auto) 0.6 % (0.0-2.0); Eosinophils # (auto) 0.2 10 ^3/uL (0-0.8); Eosinophils % (auto) 1.7 % (0.0-7.0); Hematocrit 42.1 % (41.0-53.0); Hemoglobin 14.1 g/dL (13.5-17.5); Lymphocytes # (auto) 1.6 10 ^3/uL (0.4-5.4); Lymphocytes % (auto) 15.3 % (10.0-50.0); Mean Corpuscular Hemoglobin 30.9 pg (28.0-32.0); Mean Corpuscular Hgb Conc. 33.5 g/dL (32.0-36.0); Mean Corpuscular Volume 92.4 fL (80.0-100.0); Monocytes # (auto) 0.7 10 ^3/uL (0-1.3); Monocytes % (auto) 6.4 % (0.0-12.0); Neutrophils # (auto) 8.1 10 ^3/uL (1.6-8.6); Platelet Count (auto) 151 10^3/uL (140-450); Red Blood Cells 4.56 10^6/uL (4.5-5.90); Red Cell Distribution Width 13.4 % (11.8-14.3); White Blood Cell 10.7 10^3/uL (4.4-10.8)
[2021-03-27 22:30] LABS: Alanine Aminotransferase 20 U/L (16-61); Albumin 3.4 g/dL (3.4-5.0); Anion Gap 6 (5-15); Aspartate Aminotransferase 22 U/L (15-37); BUN/Creatinine Ratio 21.2; Blood Urea Nitrogen 21 mg/dL (7-18); Calcium 8.5 mg/dL (8.5-10.1); Carbon Dioxide 23 mmol/L (21-32); Chloride 108 mmol/L (98-107); GFR African American 93 mL/min; GFR Non-African American 77 mL/min; Glucose 112 mg/dL (74-106); Magnesium 2.4 mg/dL (1.6-2.6); Potassium 4.2 mmol/L (3.5-5.1); Sodium 137 mmol/L (136-145)
[2021-03-27 22:35] LABS: Alkaline Phosphatase 109 U/L (45-117); Bilirubin, Total 0.3 mg/dL (0.2-1.0)
[2021-03-28 00:16] LABS: Urine Bacteria FEW /hpf (None Seen); Urine Blood TRACE /uL (Negative); Urine Specific Gravity 1.004 (1.001-1.035); Urine WBC 5 /hpf (0 - 3)
[2021-03-28] MEDS ORDERED: ALBU0.084 NEB (07:04)
[2021-03-28] MEDS ORDERED: DEXTROSE (50%) 50ML SYRG IV PRN (07:15)
[2021-03-28] MEDS ORDERED: MORPHINE SULF INJ 2 MG/ML SYRINGE 1ML IV PRN (07:15)
[2021-03-28] MEDS ORDERED: ONDANSETRON HCL 4 MG/2 ML VIAL IV PRN (07:15)
[2021-03-28] MEDS ORDERED: ACETAMINOPHEN 325 MG TAB PO PRN (07:15)
[2021-03-28] MEDS: ASPirin 81 mg TAB PO SCH (09:35)
[2021-03-28] MEDS: FAMOTIDINE 20 MG TAB PO SCH (09:36)
[2021-03-28] MEDS: amLODIPine BESYLATE 5 MG TAB PO SCH (09:36)
[2021-03-28] MEDS: GABAPENTIN 300 MG CAP PO SCH ×2 (09:36→21:39)
[2021-03-28] MEDS: ENOXAPARIN SOD 40 MG/0.4 ML SYRINGE SC SCH (09:37)
[2021-03-28 10:13] VITALS: BP 186/90
[2021-03-28] MEDS: InsuLIN REG 1unit/0.01ml Soln (100units/ml) SC SCH ×3 (11:30→21:40)
[2021-03-28] MEDS ORDERED: hydrALAZINE HCL 20 MG/ML VL IV ONE (11:45)
[2021-03-28] MEDS: ACCU-CHEK COMFORT CURVE STRIP VI SCH ×3 (12:50→21:36)
[2021-03-28 13:00] VITALS: BP 161/92
[2021-03-28 16:37] VITALS: BP 153/84
[2021-03-28] MEDS ORDERED: LISINOPRIL 10 MG TAB PO ONE (17:30)
[2021-03-28 22:00] VITALS: BP 135/84
[2021-03-28] MEDS ORDERED: ATORVASTATIN 20 MG TAB PO SCH (22:00)
[2021-03-29 05:00] VITALS: BP 103/64
[2021-03-29] MEDS: ACCU-CHEK COMFORT CURVE STRIP VI SCH ×2 (06:24→12:07)
[2021-03-29 06:26] LABS: Basophils # (auto) 0 10 ^3/uL (0-0.2); Basophils % (auto) 0.3 % (0.0-2.0); Eosinophils # (auto) 0.1 10 ^3/uL (0-0.8); Hematocrit 43.2 % (41.0-53.0); Hemoglobin 14.5 g/dL (13.5-17.5); Lymphocytes # (auto) 1.5 10 ^3/uL (0.4-5.4); Lymphocytes % (auto) 15.5 % (10.0-50.0); Mean Corpuscular Hemoglobin 30.9 pg (28.0-32.0); Mean Corpuscular Hgb Conc. 33.6 g/dL (32.0-36.0); Mean Corpuscular Volume 91.9 fL (80.0-100.0); Monocytes # (auto) 0.9 10 ^3/uL (0-1.3); Monocytes % (auto) 9.2 % (0.0-12.0); Neutrophils # (auto) 7.1 10 ^3/uL (1.6-8.6); Platelet Count (auto) 165 10^3/uL (140-450); Red Cell Distribution Width 13.3 % (11.8-14.3); White Blood Cell 9.6 10^3/uL (4.4-10.8)
[2021-03-29] MEDS: InsuLIN REG 1unit/0.01ml Soln (100units/ml) SC SCH ×2 (06:26→11:30)
[2021-03-29 06:42] LABS: BUN/Creatinine Ratio 20.6; Calcium 8.8 mg/dL (8.5-10.1); Potassium 4.1 mmol/L (3.5-5.1)
[2021-03-29 08:00] VITALS: BP 111/76
[2021-03-29] MEDS ORDERED: LISI-716 PO (09:30)
[2021-03-29] MEDS: ASPirin 81 mg TAB PO SCH (09:46)
[2021-03-29] MEDS: GABAPENTIN 300 MG CAP PO SCH (09:46)
[2021-03-29] MEDS: FAMOTIDINE 20 MG TAB PO SCH (09:47)
[2021-03-29] MEDS: ENOXAPARIN SOD 40 MG/0.4 ML SYRINGE SC SCH (09:47)
[2021-03-29] MEDS: amLODIPine BESYLATE 5 MG TAB PO SCH (09:47)
[2021-03-29 11:21] VITALS: BP 111/76
== END 2021-03-29 12:15 | disposition home or self-care (01) ==
LOC: EDBD 21:44 → ER 21:50 → TELE 03-28 07:06 → INTOOBSV 03-28 07:06 → TELE-WESTW 03-28 09:59
PROVIDERS: ADMIT Nurse Practitioner; ATTEND Internal Medicine
DX: I20.9 Angina pectoris, unspecified (principal); I10 Essential (primary) hypertension; J43.9 Emphysema, unspecified; F41.9 Anxiety disorder, unspecified; R07.89 Other chest pain; E11.40 Type 2 diabetes mellitus with diabetic neuropathy, unspecified; E78.5 Hyperlipidemia, unspecified; D84.9 Immunodeficiency, unspecified; Z90.49 Acquired absence of other specified parts of digestive tract; Z79.82 Long term (current) use of aspirin; Z79.84 Long term (current) use of oral hypoglycemic drugs
CPT/HCPCS: 36415; 71045; 80048; 80053; 81001; 82962; 83735; 83880; 84484; 85025; 87426; 93005; 93306; 96372; 96374; 99285; G0378; J0360; J1650

== ENCOUNTER 2021-04-02 19:49 | Inpatient (IN) | payer OTHER ==
[~2021-04-02] VITALS: Ht 172.7 cm; Wt 83.1 kg
[~2021-04-02 19:49] MED LIST changes: +ALBU0.084 NEB; -ALPR0.5T7 PO; -AMLO-489 PO; -AZIT500T PO; -CYAN1TAB14 PO; -LISI-275 PO; +LISI-716 PO; -SIMV-8
[2021-04-02 20:51] LABS: Basophils # (auto) 0 10 ^3/uL (0-0.2); Basophils % (auto) 0.3 % (0.0-2.0); Eosinophils # (auto) 0.1 10 ^3/uL (0-0.8); Eosinophils % (auto) 0.9 % (0.0-7.0); Hematocrit 42.1 % (41.0-53.0); Hemoglobin 14.5 g/dL (13.5-17.5); Lymphocytes # (auto) 1.7 10 ^3/uL (0.4-5.4); Lymphocytes % (auto) 17.4 % (10.0-50.0); Mean Corpuscular Hemoglobin 31.2 pg (28.0-32.0); Mean Corpuscular Hgb Conc. 34.4 g/dL (32.0-36.0); Mean Corpuscular Volume 90.8 fL (80.0-100.0); Monocytes # (auto) 0.8 10 ^3/uL (0-1.3); Monocytes % (auto) 8.4 % (0.0-12.0); Neutrophils # (auto) 7.3 10 ^3/uL (1.6-8.6); Nucleated Red Blood Cells % 0.2 %; Platelet Count (auto) 172 10^3/uL (140-450); Red Blood Cells 4.63 10^6/uL (4.5-5.90); Red Cell Distribution Width 13.3 % (11.8-14.3)
[2021-04-02 21:03] LABS: Albumin 3.4 g/dL (3.4-5.0); Anion Gap 9 (5-15); BUN/Creatinine Ratio 18.9; Blood Urea Nitrogen 17 mg/dL (7-18); Calcium 8.2 mg/dL (8.5-10.1); Carbon Dioxide 23 mmol/L (21-32); Chloride 94 mmol/L (98-107); GFR African American 104 mL/min; GFR Non-African American 86 mL/min; Glucose 105 mg/dL (74-106); Potassium 4.3 mmol/L (3.5-5.1); Sodium 126 mmol/L (136-145)
[2021-04-02 21:09] LABS: Alanine Aminotransferase 24 U/L (16-61); Alkaline Phosphatase 106 U/L (45-117); Aspartate Aminotransferase 27 U/L (15-37); Bilirubin, Total 0.4 mg/dL (0.2-1.0)
[2021-04-02] MEDS ORDERED: ONDANSETRON HCL 4 MG/2 ML VIAL IV PRN (21:30)
[2021-04-02] MEDS ORDERED: MORPHINE SULF INJ 2 MG/ML SYRINGE 1ML IV PRN (21:30)
[2021-04-02] MEDS ORDERED: cloNIDine HCL 0.1 MG TAB PO PRN (21:30)
[2021-04-02] MEDS ORDERED: DEXTROSE (50%) 50ML SYRG IV PRN (21:30)
[2021-04-02] MEDS ORDERED: ALBUTEROL SULF 2.5 MG/0.5ML(0.5%) NEB SOLN NEB PRN (21:30)
[2021-04-02 21:58] VITALS: BP 136/68
[2021-04-02] MEDS: ACCU-CHEK COMFORT CURVE STRIP VI SCH (22:00)
[2021-04-02] MEDS: InsuLIN REG 1unit/0.01ml Soln (100units/ml) SC SCH (22:00)
[2021-04-02] MEDS: FAMOTIDINE 20 MG TAB PO SCH (22:23)
[2021-04-02] MEDS: ATORVASTATIN 20 MG TAB PO SCH (22:23)
[2021-04-02] MEDS: GABAPENTIN 300 MG CAP PO SCH (22:23)
[2021-04-03] MEDS: GABAPENTIN 300 MG CAP PO SCH ×3 (06:07→21:39)
[2021-04-03 06:23] LABS: Basophils # (auto) 0 10 ^3/uL (0-0.2); Basophils % (auto) 0.6 % (0.0-2.0); Eosinophils # (auto) 0.2 10 ^3/uL (0-0.8); Eosinophils % (auto) 1.9 % (0.0-7.0); Hematocrit 40.1 % (41.0-53.0); Hemoglobin 13.8 g/dL (13.5-17.5); Lymphocytes % (auto) 25.2 % (10.0-50.0); Mean Corpuscular Hemoglobin 31.2 pg (28.0-32.0); Mean Corpuscular Hgb Conc. 34.3 g/dL (32.0-36.0); Mean Corpuscular Volume 90.9 fL (80.0-100.0); Monocytes # (auto) 0.9 10 ^3/uL (0-1.3); Monocytes % (auto) 11.2 % (0.0-12.0); Neutrophils # (auto) 4.8 10 ^3/uL (1.6-8.6); Neutrophils % (auto) 61.1 % (37.0-80.0); Platelet Count (auto) 176 10^3/uL (140-450); Red Blood Cells 4.42 10^6/uL (4.5-5.90); Red Cell Distribution Width 13.1 % (11.8-14.3); White Blood Cell 7.8 10^3/uL (4.4-10.8)
[2021-04-03 06:37] LABS: Calcium 8.2 mg/dL (8.5-10.1)
[2021-04-03 06:40] LABS: BUN/Creatinine Ratio 19.8
[2021-04-03] MEDS: InsuLIN REG 1unit/0.01ml Soln (100units/ml) SC SCH ×4 (06:46→21:50)
[2021-04-03] MEDS: ACCU-CHEK COMFORT CURVE STRIP VI SCH ×4 (06:46→21:49)
[2021-04-03] MEDS: FAMOTIDINE 20 MG TAB PO SCH ×2 (10:21→21:39)
[2021-04-03] MEDS: LISINOPRIL 10 MG TAB PO SCH (10:22)
[2021-04-03] MEDS: ENOXAPARIN SOD 40 MG/0.4 ML SYRINGE SC SCH (10:22)
[2021-04-03] MEDS: ADENOSINE 72 MG in GIVE UN-DILUTED 0 ML IV STA ×2 (13:14→13:50)
[2021-04-03 16:35] VITALS: BP 105/70
[2021-04-03] MEDS: ATORVASTATIN 20 MG TAB PO SCH (21:38)
[2021-04-03 21:39] VITALS: BP 123/78
[2021-04-04] MEDS ORDERED: LISI-275 PO (01:05)
[2021-04-04] MEDS ORDERED: SIMV-8 PO (01:05)
[2021-04-04 05:00] VITALS: BP 105/71
[2021-04-04] MEDS: ACCU-CHEK COMFORT CURVE STRIP VI SCH ×3 (05:34→17:00)
[2021-04-04] MEDS: GABAPENTIN 300 MG CAP PO SCH ×2 (05:34→14:00)
[2021-04-04] MEDS: InsuLIN REG 1unit/0.01ml Soln (100units/ml) SC SCH ×2 (05:34→11:30)
[2021-04-04 09:00] VITALS: BP 110/70
[2021-04-04] MEDS: ENOXAPARIN SOD 40 MG/0.4 ML SYRINGE SC SCH (09:23)
[2021-04-04] MEDS: FAMOTIDINE 20 MG TAB PO SCH (09:23)
[2021-04-04] MEDS: LISINOPRIL 10 MG TAB PO SCH (10:00)
[2021-04-04 13:00] VITALS: BP 94/56
[2021-04-04 16:35] VITALS: BP 152/82
== END 2021-04-04 17:44 | disposition home or self-care (01) | DRG 311 ==
LOC: EDBD 19:49 → ER 19:53 → TELE 21:17 → TELE-WESTW 04-03 16:24
PROVIDERS: ADMIT Nurse Practitioner; ATTEND Internal Medicine
DX: I20.0 Unstable angina (principal); I10 Essential (primary) hypertension; E11.9 Type 2 diabetes mellitus without complications; E78.5 Hyperlipidemia, unspecified; J44.9 Chronic obstructive pulmonary disease, unspecified; Z20.822 Contact with and (suspected) exposure to COVID-19; Z88.8 Allergy status to other drugs, medicaments and biological substances; Z82.49 Family history of ischemic heart disease and other diseases of the circulatory system; Z83.6 Family history of other diseases of the respiratory system; Z79.899 Other long term (current) drug therapy; Z87.891 Personal history of nicotine dependence
CPT/HCPCS: 36415; 71045; 78452; 80048; 80053; 82962; 84484; 85025; 87081; 87426; 93005; 93017; 96372; G0378; J0153; J1815

== ENCOUNTER → 2021-12-23 | Outpatient (CLI) | payer OTHER ==
[2021-12-23 12:53] LABS: Basophils # (auto) 0.1 10 ^3/uL (0-0.2); Basophils % (auto) 1.1 % (0.0-2.0); Eosinophils # (auto) 0.2 10 ^3/uL (0-0.8); Eosinophils % (auto) 2.3 % (0.0-7.0); Hematocrit 44.8 % (41.0-53.0); Hemoglobin 14.6 g/dL (13.5-17.5); Lymphocytes # (auto) 2.5 10 ^3/uL (0.4-5.4); Lymphocytes % (auto) 25.7 % (10.0-50.0); Mean Corpuscular Hemoglobin 30.6 pg (28.0-32.0); Mean Corpuscular Hgb Conc. 32.7 g/dL (32.0-36.0); Mean Corpuscular Volume 93.4 fL (80.0-100.0); Monocytes # (auto) 0.9 10 ^3/uL (0-1.3); Monocytes % (auto) 8.9 % (0.0-12.0); Nucleated Red Blood Cells % 0.2 %; Red Blood Cells 4.79 10^6/uL (4.5-5.90); Red Cell Distribution Width 14.4 % (11.8-14.3); White Blood Cell 9.6 10^3/uL (4.4-10.8)
[2021-12-23 13:50] LABS: Potassium 4.6 mmol/L (3.5-5.1)
[2021-12-23 14:03] LABS: Albumin 3.3 g/dL (3.4-5.0); BUN/Creatinine Ratio 22.2; Bilirubin, Total 0.5 mg/dL (0.2-1.0); Calcium 8.6 mg/dL (8.5-10.1); Total Protein 7.2 g/dL (6.4-8.2)
== END | disposition home or self-care (01) ==
LOC: LAB 08:33
PROVIDERS: ATTEND Student in an Organized Health Care Education/Training Program
DX: Z00.00 Encounter for general adult medical examination without abnormal findings (principal); E11.9 Type 2 diabetes mellitus without complications; I10 Essential (primary) hypertension; E78.5 Hyperlipidemia, unspecified
CPT/HCPCS: 36415; 80053; 80061; 83036; 85025

== ENCOUNTER → 2022-01-17 | Outpatient (CLI) | payer OTHER | END | disposition home or self-care (01) | LOC: LAB 10:00 | PROVIDERS: ATTEND Family Medicine | DX: D09.9 Carcinoma in situ, unspecified (principal); L82.1 Other seborrheic keratosis | CPT/HCPCS: 88302 ==

== ENCOUNTER → 2022-12-16 | Outpatient (CLI) | payer OTHER ==
[2022-12-16 09:12] LABS: Albumin 3.4 g/dL (3.4-5.0); Calcium 8.7 mg/dL (8.5-10.1); Potassium 4.6 mmol/L (3.5-5.1)
[2022-12-16 09:17] LABS: Bilirubin, Total 0.4 mg/dL (0.2-1.0); Total Protein 7.3 g/dL (6.4-8.2)
[2022-12-16 09:49] LABS: Micro Albumin 7.12 mg/L (0-30.0)
== END | disposition home or self-care (01) ==
LOC: LAB 08:04
PROVIDERS: ATTEND Student in an Organized Health Care Education/Training Program
DX: I12.9 Hypertensive chronic kidney disease with stage 1 through stage 4 chronic kidney disease, or unspecified chronic kidney disease (principal); E11.22 Type 2 diabetes mellitus with diabetic chronic kidney disease; N18.9 Chronic kidney disease, unspecified
CPT/HCPCS: 36415; 80053; 80061; 82043; 82570; 83036

== ENCOUNTER → 2022-12-26 | Outpatient (CLI) | payer OTHER | END | disposition home or self-care (01) | LOC: LAB 13:20 | PROVIDERS: ATTEND Family Medicine | DX: L82.1 Other seborrheic keratosis (principal) | CPT/HCPCS: 88302 ==

== ENCOUNTER → 2024-11-07 | Outpatient (CLI) | payer OTHER ==
[~2024-11-07] MED LIST changes: +GABA-1250 PO; -GABA300C10 PO; -LISI-716 PO; +LISI10TA34 PO
[2024-11-07 10:56] LABS: Urine Bacteria None Seen /hpf (None Seen)
[2024-11-07 11:36] LABS: Basophils # (auto) 0 10 ^3/uL (0-0.2); Basophils % (auto) 0.4 % (0.0-2.0); Eosinophils # (auto) 0.3 10 ^3/uL (0-0.8); Eosinophils % (auto) 3.2 % (0.0-7.0); Hematocrit 47.1 % (41.0-53.0); Hemoglobin 15.7 g/dL (13.5-17.5); Lymphocytes # (auto) 1.8 10 ^3/uL (0.4-5.4); Lymphocytes % (auto) 19.5 % (10.0-50.0); Mean Corpuscular Hemoglobin 31.6 pg (28.0-32.0); Mean Corpuscular Hgb Conc. 33.3 g/dL (32.0-36.0); Monocytes # (auto) 0.7 10 ^3/uL (0-1.3); Monocytes % (auto) 7.2 % (0.0-12.0); Neutrophils # (auto) 6.5 10 ^3/uL (1.6-8.6); Neutrophils % (auto) 69.7 % (37.0-80.0); Platelet Count (auto) 143 10^3/uL (140-450); Red Blood Cells 4.96 10^6/uL (4.5-5.90); Red Cell Distribution Width 13.9 % (11.8-14.3); White Blood Cell 9.3 10^3/uL (4.4-10.8)
[2024-11-07 11:49] LABS: Alanine Aminotransferase 17 U/L (7-40); Albumin 4.2 g/dL (3.2-4.8); Alkaline Phosphatase 99 U/L (46-116); Anion Gap 7 (5-15); BUN/Creatinine Ratio 15.1 (10.0-20.0); Blood Urea Nitrogen 18 mg/dL (9-23); Calcium 9.7 mg/dL (8.7-10.4); Carbon Dioxide 26 mmol/L (20-31); Chloride 106 mmol/L (98-107); Potassium 5.1 mmol/L (3.5-5.1); Sodium 139 mmol/L (136-145); Triglycerides 128 mg/dL (< 150)
[2024-11-07 11:50] LABS: Aspartate Aminotransferase 26 U/L (13-40); Bilirubin, Total 0.5 mg/dL (0.2-1.0); Cholesterol 193 mg/dL (< 200); HDL Cholesterol 51 mg/dL (40-59); Total Protein 7.2 g/dL (5.7-8.2)
[2024-11-07 11:51] LABS: Glucose 141 mg/dL (74-106); LDL Cholesterol 134 mg/dL (< 100)
[2024-11-07 11:54] LABS: Urine Blood Negative /uL (Negative); Urine Budding Yeast OCCASIONAL /hpf (None Seen); Urine Clarity Clear (Clear); Urine Color Light-Yellow (Yellow); Urine Protein, UAD Negative (Negative); Urine Specific Gravity 1.012 (1.001-1.035); Urine Squamous Epithelial Cell FEW /hpf (<5); Urine Urobilinogen Normal (Negative); Urine WBC 6 /hpf (0 - 3); Urine pH 6.5 (5.0-9.0)
[2024-11-08 11:06] LABS: PSA Free 0.51 ng/mL; Prostate Specific Antigen 4.8 ng/mL (0.0-4.0)
== END | disposition home or self-care (01) ==
LOC: LAB 10:37
PROVIDERS: ATTEND Nurse Practitioner
DX: I10 Essential (primary) hypertension (principal); E11.9 Type 2 diabetes mellitus without complications; E78.5 Hyperlipidemia, unspecified
CPT/HCPCS: 36415; 80053; 80061; 81001; 83036; 84153; 84154; 84443; 85025

== ENCOUNTER 2025-05-10 10:02 | Outpatient (CLI) | payer OTHER ==
[2025-05-10 10:29] LABS: Hematocrit 44.0 % (41.0-53.0); Hemoglobin 15.0 g/dL (13.5-17.5); Mean Corpuscular Hemoglobin 31.6 pg (28.0-32.0); Mean Corpuscular Volume 92.8 fL (80.0-100.0); Nucleated Red Blood Cells % 0.0 %
[2025-05-10 11:00] LABS: Alanine Aminotransferase 17 U/L (7-40); Albumin 4.2 g/dL (3.2-4.8); Alkaline Phosphatase 88 U/L (46-116); Anion Gap 8 (5-15); BUN/Creatinine Ratio 15.9 (10.0-20.0); Blood Urea Nitrogen 18 mg/dL (9-23); Calcium 9.9 mg/dL (8.7-10.4); Carbon Dioxide 27 mmol/L (20-31); Chloride 105 mmol/L (98-107); Potassium 4.8 mmol/L (3.5-5.1); Sodium 140 mmol/L (136-145); Total Protein 6.9 g/dL (5.7-8.2); Triglycerides 91 mg/dL (< 150)
[2025-05-10 11:01] LABS: Bilirubin, Total 0.5 mg/dL (0.2-1.0); Cholesterol 157 mg/dL (< 200); Glucose 151 mg/dL (74-106); HDL Cholesterol 47 mg/dL (40-59)
== END 2025-05-10 17:00 | disposition home or self-care (01) ==
LOC: LAB 10:02
PROVIDERS: ATTEND Licensed Practical Nurse
DX: I10 Essential (primary) hypertension (principal); E11.69 Type 2 diabetes mellitus with other specified complication; E78.5 Hyperlipidemia, unspecified; E55.9 Vitamin D deficiency, unspecified
CPT/HCPCS: 36415; 80053; 80061; 82043; 82306; 82607; 83036; 85025

== ENCOUNTER → 2025-08-17 | Outpatient (CLI) | payer OTHER ==
[2025-08-17 13:00] LABS: Hematocrit 45.5 % (41.0-53.0); Hemoglobin 15.0 g/dL (13.5-17.5); Mean Corpuscular Hemoglobin 30.9 pg (28.0-32.0); Mean Corpuscular Volume 93.6 fL (80.0-100.0); Nucleated Red Blood Cells % 0.1 %
[2025-08-17 13:27] LABS: Alanine Aminotransferase 19 U/L (7-40); Albumin 4.1 g/dL (3.2-4.8); Alkaline Phosphatase 97 U/L (46-116); Anion Gap 7 (5-15); BUN/Creatinine Ratio 18.5 (10.0-20.0); Blood Urea Nitrogen 20 mg/dL (9-23); Calcium 9.4 mg/dL (8.7-10.4); Carbon Dioxide 26 mmol/L (20-31); Chloride 106 mmol/L (98-107); Potassium 4.9 mmol/L (3.5-5.1); Sodium 139 mmol/L (136-145); Total Protein 7.2 g/dL (5.7-8.2)
[2025-08-17 13:28] LABS: Bilirubin, Total 0.4 mg/dL (0.2-1.0)
[2025-08-17 13:42] LABS: Glucose 114 mg/dL (74-106)
[2025-08-17 13:58] LABS: Triglycerides 136 mg/dL (< 150)
[2025-08-17 14:00] LABS: Cholesterol 169 mg/dL (< 200); HDL Cholesterol 47 mg/dL (40-59)
== END | disposition home or self-care (01) ==
LOC: LAB 12:00
PROVIDERS: ATTEND Licensed Practical Nurse
DX: I10 Essential (primary) hypertension (principal); E11.69 Type 2 diabetes mellitus with other specified complication; E78.2 Mixed hyperlipidemia
CPT/HCPCS: 36415; 80053; 80061; 82043; 83036; 85025